=== PATIENT | male | born 1965 | race Caucasian/White ===

== ENCOUNTER → 2016-11-14 | Outpatient (CLI) | payer OTHER | END | disposition home or self-care (01) | LOC: LABWHC1 15:03 | PROVIDERS: ATTEND Orthopaedic Surgery Hand Surgery | DX: Z01.810 Encounter for preprocedural cardiovascular examination (principal); M72.0 Palmar fascial fibromatosis [Dupuytren] | CPT/HCPCS: 36415; 93005 ==

== ENCOUNTER → 2017-09-16 | Outpatient (CLI) | payer OTHER ==
[2017-09-16 11:48] LABS: CH 30.5; CHCM 35.4; HCT 47.4 % (39.0-53.0); HDW 2.98; HGB 16.1 gm/dL (13.0-17.5); MCH 29.3 pg (25.0-35.0); MCHC 33.9 g/dL (31.0-37.0); MCV 86.5 fL (80.0-100.0); Mean Platelet Volume 7.2; RBC 5.48 m/uL (4.30-5.90); RDW 13.4 % (11.5-15.5); WBC 7.4 k/uL (3.8-10.6)
[2017-09-16 12:04] LABS: Anion Gap 12 mmol/L; Blood Urea Nitrogen 11 mg/dL (9-20); Carbon Dioxide 26 mmol/L (22-30); Chloride 101 mmol/L (98-107); Non-African American GFR(MDRD) >60 (>60 ml/min/1.73 sqM); Sodium 139 mmol/L (137-145)
[2017-09-16 12:08] LABS: Potassium 5.4 mmol/L (3.5-5.1)
== END | disposition home or self-care (01) ==
LOC: LABPAT 10:16
PROVIDERS: ATTEND Internal Medicine Interventional Cardiology
DX: Z01.812 Encounter for preprocedural laboratory examination (principal); R07.9 Chest pain, unspecified
CPT/HCPCS: 36415; 80051; 82565; 84520; 85027

== ENCOUNTER 2017-09-23 10:51 | Day surgery (SDC) | payer OTHER ==
[2017-09-22 09:12] VITALS: BMI 27.9
[~2017-09-23 10:51] MED LIST: ALPRAZolam 0.25 MG TAB PO PRN; ALPRAZolam 0.5 MG TAB PO PRN; ASPIRIN 325 MG TAB PO ONE; NITROGLYCERIN SL TABS 0.4 MG TAB SUBLINGUAL PRN; SODIUM CHLORIDE 0.9% 1,000 ML in EMPTY BAG 1 BAG IV ONE
[2017-09-23 11:23] LABS: Glucose,Whole Blood 259 mg/dL (75-99)
[2017-09-23 11:37] VITALS: TEMP 98.4
[2017-09-23] MEDS ORDERED: HEPARIN SODIUM 1,000 UN/ML (10ML VL) ONE (13:22)
[2017-09-23] MEDS ORDERED: fentaNYL (PF) 50 MCG/ML 2 ML AMP ONE (13:22)
[2017-09-23] MEDS ORDERED: VERAPAMIL 2.5 MG/ML 2 ML AMP ONE (13:22)
[2017-09-23] MEDS ORDERED: LIDOCAINE 2% INJ 20 MG/ML (20 ML MDV) ONE (13:22)
[2017-09-23] MEDS ORDERED: fentaNYL (PF) 50 MCG/ML 2 ML AMP IV ONE (13:53)
[2017-09-23] MEDS ORDERED: LIDOCAINE 2% INJ 20 MG/ML SQ ONE (13:55)
[2017-09-23] MEDS ORDERED: VERAPAMIL SYRINGE (5 MG/10 ML) INTRAARTER ONE (13:56)
[2017-09-23] MEDS ORDERED: NITROGLYCERIN 1000MCG/10ML SYRINGE INTRAARTER ONE (14:05)
[2017-09-23] MEDS ORDERED: HEPARIN SODIUM 1,000 UN/ML (10ML VL) IV ONE (14:05)
[2017-09-23] MEDS ORDERED: IOHEXOL 350 MG/ML 125ML BOTTLE INJ ONE (14:12)
[2017-09-23] MEDS ORDERED: RX INFO: IV CONTRAST WAS GIVEN 1 EACH MISC MISCELLANE PRN (14:35)
[2017-09-23] MEDS ORDERED: TESTOSTERONE CYPIONATE 50 MG IM SCH (14:45)
[2017-09-23] MEDS ORDERED: SODIUM CHLORIDE 0.9% 1,000 ML IV SCH (14:45)
[2017-09-23 16:30] VITALS: RESP 16
[2017-09-23 17:54] VITALS: BP 101/64; PULSE 84
--- NOTE | 2017-09-23 19:27 | CC ---
CARDIAC CATHETERIZATION REPORT Mr. Olivarez is a 52-year-old male with known history of hypertension, hyperlipidemia, who has recently been complaining of episode of chest discomfort. In view of that, underwent a myocardial perfusion imaging that showed evidence of intra anteroapical wall reversible defect. In view of that, recommendation made regarding cardiac catheterization. The procedures, risks and complications were discussed with the patient who is in full understanding and agreement. PROCEDURE: Patient was brought to cardiac cath lab manager in a fasting semi-sedated state after receiving fentanyl and Benadryl and achieving moderate conscious sedated state. Using Xylocaine anesthesia and Seldinger technique, a 6-[place] sheath was introduced in the right radial artery. Selective right and left coronary angiography was performed using 5- [place] 3 and half bend right and left Billie catheter. Multiple views of the coronary artery including hemiaxial views obtained. Following that a 5-[place] tight pigtail catheter was introduced into the left ventricle and a 30 degree ROLLINS view of the left ventricle was obtained. Following that, catheter and sheaths were removed. Hemostasis was obtained with deployment of a TR band. There was no immediate complication. Patient is returned to his room in stable condition. Of note, the patient received 4500 units of intravenous heparin as well as intra-arterial verapamil. There was no immediate complication. FINDINGS: 1. Left main: This is a large-sized vessel bifurcating into the left circumflex, left anterior descending artery. The left main coronary artery is without any significant obstructive disease. 2. Left anterior descending artery: This is a large-sized vessel, tapers down in distal third, giving rise to 1 diagonal branch of moderate caliber. The left anterior descending artery as well as branches have no evidence of obstructive coronary artery disease. 3. Left circumflex this is a nondominant vessel, moderate in caliber, giving rise to a large obtuse marginal branch. The left circumflex has mild plaque of 10% at the ostium. The rest of the vessel has no high-grade stenosis. 4. Right coronary artery: This is a large dominant vessel bifurcating into PDA and posterolateral segment and branches. The right PDA reaches towards the inferoapical wall. The right coronary artery in the proximal segment has a 10-20% plaque. The rest of the vessel has no high-degree stenosis. Left ventriculogram: Left ventriculogram was performed in 30 degree ROLLINS view and revealed normal left ventricular size and systolic function. Ejection fraction 60%. There was no significant mitral regurgitation. HEMODYNAMICS: There was no gradient across the aortic valve. The left ventricle end- diastolic pressure was 6-10 mmHg. CONCLUSION: 1. 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 2. Normal left ventricular size and systolic function. RECOMMENDATION: In view of finding and anatomy, I have recommended continued medical therapy with aggressive coronary risk factors modifications that has been initiated. Those findings and recommendation were discussed with the patient and his family and they are in full understanding and agreement. Duration of the procedure 22 minutes. MMJOSY / MEGHAN: [id number] /
--- NOTE | 2017-09-23 19:33 | LTR ---
DATE OF SERVICE: 09/23/[address] Lopes: I had the pleasure of performing cardiac catheterization on Mr. Olivarez at [facility] on September 23. A full copy of the procedure note will be forwarded to you. He was found to have mild intimal disease involving the proximal left circumflex and right coronary artery with a normal left ventricular size and systolic function. Based on those findings, I recommend continue medical therapy with aggressive coronary risk modifications that you have initiated. Thank you again for allowing me to participate in his care. Please feel free to call for any questions. Sincerely yours, RAJIV / IJN: [id number] /
[2017-09-23] MEDS ORDERED: ATORVASTATIN 40 MG TAB PO SCH (21:00)
[2017-09-24] MEDS ORDERED: PIOGLITAZONE 30 MG TAB PO SCH (09:00)
[2017-09-24] MEDS ORDERED: ISOSORBIDE MONONITRATE ER 30 MG TAB.ER.24H PO SCH (09:00)
[2017-09-24] MEDS ORDERED: NON-FORMULARY DRUG (Aspirin [Adult Low Dose Aspirin Ec] 81 MG) PO SCH (09:00)
[2017-09-24] MEDS ORDERED: LINAGLIPTIN PO SCH (09:00)
[2017-09-24] MEDS ORDERED: NON-FORMULARY DRUG (Diclofenac Sodium 75 MG) PO SCH (09:00)
[2017-09-24] MEDS ORDERED: EMPAGLIFLOZIN PO SCH (09:00)
== END 2017-09-23 18:29 | disposition home or self-care (01) ==
LOC: CATHCVL 10:51
PROVIDERS: ATTEND Internal Medicine Interventional Cardiology
DX: I25.10 Atherosclerotic heart disease of native coronary artery without angina pectoris (principal); E11.9 Type 2 diabetes mellitus without complications; I10 Essential (primary) hypertension; E78.2 Mixed hyperlipidemia; E78.00 Pure hypercholesterolemia, unspecified; Z79.84 Long term (current) use of oral hypoglycemic drugs; Z79.82 Long term (current) use of aspirin; Z79.899 Other long term (current) drug therapy
CPT/HCPCS: 93458; 84132; C1894; C1769; J2001; J3010; J1644; Q9967

== ENCOUNTER → 2018-02-01 | Outpatient (CLI) | payer OTHER ==
--- NOTE | 2018-02-01 21:28 | MR ---
EXAMINATION TYPE: MR cervical spine wo con DATE OF EXAM: 02/01/2018 COMPARISON: NONE HISTORY: 52-year-old male with cervicalgia, Neck pain x3 months TECHNIQUE: Multiplanar, multisequence images of the cervical spine were acquired. Findings: No craniocervical junction abnormality, predental space widening, or prevertebral soft tissue swellin g. There is variable mild to moderate intervertebral disc desiccation throughout the cervical spine with disc osteophyte complex formation. Additional ligamentum flavum thickening and facet/uncovertebral j oint arthropathy at multiple levels as well as ligamentum flavum thickening. No suspicious bone marrow placement. At C2-C3, there is mild facet degenerative change without canal or foraminal stenosis. At C3-C4, mild broad-based disc osteophyte complex contiguous uncovertebral joint arthropathy. Additi onal bilateral facet arthropathy. Changes result in mild narrowing of the spinal canal with moderate right and mild left neural foraminal stenosis. At C4-C5, broad-based disc osteophyte complex contiguous with uncovertebral joint arthropathy. Additi onal ligamentum flavum thickening and facet degenerative change. Changes result in mild to moderate n arrowing of the spinal canal with abutment of both the dorsal and ventral cord with moderate right an d [id number] left neuroforaminal stenosis. At C5-C6, broad-based discussed by complex with uncovertebral joint and facet degenerative change. Ch anges result in moderate left greater than right neuroforaminal stenosis with mild overall spinal can al stenosis. At C6-C7, disc osteophyte complex with uncovertebral joint and facet degenerative change. No signific ant canal or foraminal stenosis. At C7/T1, there is ligamentum flavum thickening with minimal disc bulge and facet/uncovertebral joint degenerative change. Changes result in mild to moderate left and mild right neuroforaminal stenosis with mild overall spinal canal stenosis. No prevertebral or paravertebral soft tissue abnormality seen. Some heterogeneous signal of the cord secondary to artifacts. No discrete T2-weighted cord signal abn ormality. IMPRESSION: 1. Moderate multilevel degenerative disc disease. Additional levels of ligamentum flavum thickening a nd facet/uncovertebral joint arthropathy. 2. There is multilevel mild spinal canal stenoses, mild to moderate narrowing at C4-C5 where there is abutment of both the dorsal and ventral cord. No willis canal compromise or cord compression 3. Variable mild and moderate neural foraminal stenoses as outlined above.
== END | disposition home or self-care (01) ==
LOC: RADMRIMAIN 16:39
PROVIDERS: ATTEND Family Medicine
DX: M48.02 Spinal stenosis, cervical region (principal); M99.71 Connective tissue and disc stenosis of intervertebral foramina of cervical region; M50.30 Other cervical disc degeneration, unspecified cervical region; M46.82 Other specified inflammatory spondylopathies, cervical region
CPT/HCPCS: 72141

== ENCOUNTER → 2018-12-28 | Outpatient (CLI) | payer OTHER | LOC: CPPFTMAIN 13:19 | PROVIDERS: ATTEND Family Medicine | DX: R73.09 Other abnormal glucose (principal); Z88.8 Allergy status to other drugs, medicaments and biological substances | CPT/HCPCS: 94060; 94726; 94729 ==

== ENCOUNTER → 2019-03-01 | Outpatient (CLI) | payer OTHER ==
[2019-03-01 11:54] VITALS: BP 138/87; PULSE 108; RESP 16
--- NOTE | 2019-03-01 12:21 | P.PAINCN ---
History of Present Illness - Reason for Consult Consult date: 03/01/19 - History of Present Illness Mr. Olivarez is a 53-year-old gentleman who presents to the new patient consult for neck pain. He reports neck pain for a couple years time. Most recent event is after having a ski injury last year. He reports is not having any surgical intervention for his neck. He reports pain across his neck and into bilateral shoulders sometimes into his right arm. He reports a right-sided worse than l eft side. He reports his child conservative therapy including aspirin, physical therapy, massage therapy. He reports ease interventions appear to make his pain worse at times. He reports a VAS usually between 6 and 8 out of 10. Pain is about a 10 nothing really makes it better. He has trialed some narcotic medications that he had left over in the past. He reports that helped a little bit but he did not interested in taking those long-term. He also had a history of chronic back pain which was healed on its own and he reports it was a "sandra" healing. Past Medical History Past Medical History: Diabetes Mellitus, Hyperlipidemia Additional Past Medical History / Comment(s): "Dupertons" disease. Renal stones. Anxiety/panic disorder. History of Any Multi-Drug Resistant Organisms: None Reported Past Surgical History: Orthopedic Surgery Past Anesthesia/Blood Transfusion Reactions: No Reported Reaction Past Psychological History: Anxiety, Panic Disorder Additional Psychological History / Comment(s): Reports cardiac response including increased heart rate to "6 different medications." Smoking Status: Never smoker Past Alcohol Use History: None Reported Past Drug Use History: None Reported Medications and Allergies Home Medications Medication Instructions Recorded Confirmed Type Aspirin [Adult Low Dose Aspirin EC] 81 mg PO DAILY 09/22/17 03/01/19 History Atorvastatin [Lipitor] 40 mg PO HS 09/22/17 03/01/19 History Diclofenac Sodium [Voltaren] 75 mg PO DAILY 09/22/17 03/01/19 History Empagliflozin/Linagliptin 1 each PO DAILY 09/22/17 03/01/19 History [Glyxambi 25 mg-5 mg Tablet] Isosorbide Mononitrate ER [Imdur] 30 mg PO DAILY 09/22/17 03/01/19 History Pioglitazone [Actos] 30 mg PO DAILY 09/22/17 03/01/19 History metFORMIN HCL [Glucophage Xr] 500 mg PO DAILY 09/22/17 03/01/19 History Allergies Allergy/AdvReac Type Severity Reaction Status Date / Time Insulins AdvReac migraines Verified 03/01/19 11:41 Physical Exam Vitals: Vital Signs Pulse Resp BP Pulse Ox 03/01/19 11:42 108 H 16 138/87 99 Intake and Output 02/28/19 03/01/19 03/01/19 22:59 06:59 14:59 Other: Weight 88.451 kg PHYSICAL EXAM: Constitutional: Awake and alert no distress Cardiovascular exam: Regular rate, no lower extremity edema, palpable pulses bilaterally Respiratory exam: No audible wheezing, no accessory muscle usage Abdominal exam: Soft nontender Muscular skeletal exam: - Cervical spine: Minimal tenderness to palpation bilaterally. Range of motion is severely limited. Neck extension to 0, neck flexion to about 30, 0 of lateral sidebending. Is able to look to his left side to about 30 and about 20 to his right side. Spurling's is positive on the right. Facet loading is positive bilateral, Keith's is negative - Lumbar spine: Decreased lumbar lordosis. No changes in skin. Nontender palpation bilateral. Patient has full range of motion in flexion and extension as well as lateral sidebending. Straight leg raise is negative. Facet loading is negative. Neuro exam: Normal sensation bilateral upper and lower extremities. Deep tendon reflexes in the right upper extremity are 1+ and 2+ in the left upper extremity. Deep tendon reflexes in the lower extremities are 2+ bilateral Psychiatric exam: Cooperative, good insight Assessment and Plan Assessment: #1 cervical radiculopathy #2 cervical spondylosis without myelopathy Plan: After examination the patient, review of the medical records, and discussion with the patient I believe that this patient is multiple factorial reasons for his pain. I had a discussion with them regarding treatment plan which spanned from conservative therapy through surgical intervention. Patient would like to move forward with minimally invasive injections as he has trialed to conservative therapy without much relief. I discussed with him the risks b enefits and alternatives to the procedure. I discussed with him that injections may offer him some benefit but he should continue with his conservative therapy including physical therapy and massage therapy and daily relaxation techniques. Also given a prescription for Mobic 7.5 mg to take 1-2 times per day as needed. We will see the patient back for a cervical epidural steroid injection Time with Patient: Greater than 30 PQRS Measure Charge Sheet Measure #130: Documentation of Current Meds in Medical Chart: Patient's medicati ons documented in chart Measure #226: Tobacco Use: Screen & Cessation Intervention: Pt screened for tobacco use AND intervention given Measure #111: Pneumonia Vaccination: Pneumococcal vaccine administered or previously received Measure #47: Advance Care Plan: Advance care planning discussed & documented, plan or surrogate given Measure #412: Opioid Treatment Agreement: No documentation of signed opioid treatment agreement Measure #408: Opioid Therapy Follow-up Evaluation: Patient had f/u eval minimum every 3 months during opioid therapy Measure #317: Preventitive Care & Scrn High Bld Press & F/U: Normal blood pressure, f/u not required Measure #128: Body Mass Index (BMI) Screening & Follow-up: BMI documented within normal parameters Measure #131: Pain Assessment & Follow-up: Pain positive & plan documented Measure #431: Unhealthy Alcohol Use Preventative Care & Scrn: Patient not identified as an unhealthy alcohol user PQRS Narrative: Smoking Status Never smoker Do You Want the Pneumonia No Vaccine AT THIS TIME? Blood Pressure 138/87 Pain Intensity [Bilateral Neck 7 ] Scale Used Numeric (1 - 10) Hx Alcohol Use (MH) No Home Medications: Ambulatory Orders Aspirin [Adult Low Dose Aspirin EC] 81 mg PO DAILY 09/22/17 Atorvastatin [Lipitor] 40 mg PO HS 09/22/17 Diclofenac Sodium [Voltaren] 75 mg PO DAILY 09/22/17 Empagliflozin/Linagliptin [Glyxambi 25 mg-5 mg Tablet] 1 each PO DAILY 09/22/17 Isosorbide Mononitrate ER [Imdur] 30 mg PO DAILY 09/22/17 Pioglitazone [Actos] 30 mg PO DAILY 09/22/17 metFORMIN HCL [Glucophage Xr] 500 mg PO DAILY 09/22/17
== END | disposition home or self-care (01) ==
LOC: PNWHC3 11:37
PROVIDERS: ATTEND Hospitalist
DX: G89.29 Other chronic pain (principal); M47.22 Other spondylosis with radiculopathy, cervical region; E11.9 Type 2 diabetes mellitus without complications; E78.5 Hyperlipidemia, unspecified; F41.9 Anxiety disorder, unspecified; F41.0 Panic disorder [episodic paroxysmal anxiety]; Z98.890 Other specified postprocedural states; Z79.82 Long term (current) use of aspirin; Z79.891 Long term (current) use of opiate analgesic; Z79.84 Long term (current) use of oral hypoglycemic drugs; Z79.899 Other long term (current) drug therapy; Z88.8 Allergy status to other drugs, medicaments and biological substances
CPT/HCPCS: 99201

== ENCOUNTER 2019-03-14 06:55 | Day surgery (SDC) | payer OTHER ==
[2019-03-11 09:07] VITALS: BMI 27.6
[~2019-03-14 06:55] MED LIST changes: -ALPRAZolam 0.25 MG TAB PO PRN; -ALPRAZolam 0.5 MG TAB PO PRN; -ASPIRIN 325 MG TAB PO ONE; +LACTATED RINGERS 1,000 ML IV SCH; -NITROGLYCERIN SL TABS 0.4 MG TAB SUBLINGUAL PRN; -SODIUM CHLORIDE 0.9% 1,000 ML in EMPTY BAG 1 BAG IV ONE
[2019-03-14 07:18] VITALS: RESP 16; TEMP 97.6
[2019-03-14 07:26] LABS: Glucose,Whole Blood 314 mg/dL (75-99)
--- NOTE | 2019-03-14 08:14 | P.PCN ---
Date of Procedure: 03/14/19 Procedure(s) Performed: . PROCEDURE 1. Cervical epidural steroid injection under fluoroscopic guidance, C7-T1 2. Cervical epidurogram. PREOPERATIVE DIAGNOSIS: 1- Cervical radiculopathy., 2-cervical spondylosis with cervical Facet arthropathy without myelopathy POSTOPERATIVE DIAGNOSIS: : 1- Cervical radiculopathy. 2-cervical spondylosis with cervical Facet arthropathy without myelopathy ANESTHESIA: Local anesthesia with lidocaine 1 % , and moderate sedation, with Versed 2 mg and Fentanyl 50 mcg. EBL 0 PROCEDURE INDICATION: The patient with neck pain and radiculitis unresponsive to conservative treatment consents for procedure. PROCEDURE DESCRIPTION / TECHNIQUE: The patient was seen and identified in the preoperative area. Risks, benefits, complications, including but not limited to infections ,bleeding , allergic reactions to the medications ,and not complete pain releife, and alternatives were discussed with the patient, the patient agreed to proceed with the procedure and signed the consent. Patient was taken to the OR and time out was completed. The patient was placed in the prone position on the procedure table. A pillow was placed under the patients chest to increase the cervical interlaminar space. The cervical area was prepped and draped in the usual sterile fashion. Vital signs were closely monitored during the procedure. Conscious sedation was used during the procedure to decrease patients anxiety. Using anterior-posterior fluoroscopy, the C7-T1 interlaminar space was identified and the skin over this site was marked and then infiltrated with 1% lidocaine subcutaneously. Subsequently, a 20-gauge 3-1/2-inch Tuohy epidural needle was inserted and advanced toward the epidural space by means of the ``hanging-drop technique and guided by AP and lateral fluoroscopy. The correct needle position in the epidural space was verified with the injection of 2 mL of the water soluble contrast dye Isovue-200 and observing an excellent epidurogram with the epidural spread of the dye, after negative aspiration for blood and CSF and in the absence of paresthesias. Again after negative aspiration, mixture containing 10 mg Dexamethasone and 2 ml of preservative- free normal saline injected and a washout of epidurogram was seen. Needle was withdrawn intact, skin was cleansed, and bandages were applied. Complications= none. Disposition= patient was placed in supine position and transferred to the recovery room area in stable condition and there was no evidence of upper or lower extremity motor or sensory deficit after the procedure patient was discharged from recovery room after discharge criteria met and home discharge instructions was given by the staff and patient will follow with the pain clinic in 2-4 weeks Note= patient is blood sugar is 314 at 7:30 AM today, patient had history of diabetes and he reported that his blood sugar all the time between 300-400, I explained to the patient that the steroid it will increase his blood sugars, and he has to monitor this blood sugars more often and if his blood sugar higher than average ,then he has to contact his primary care.
[2019-03-14 08:35] VITALS: BP 131/86; PULSE 87
[2019-03-14] MEDS ORDERED: IV FLUID CONTINUATION 1,000 ML IV ONE (08:40)
--- NOTE | 2019-03-14 08:46 | FL ---
EXAMINATION TYPE: FL guided pain mgmt statistic DATE OF EXAM: 03/14/2019 HISTORY: Flouroscopy time 4 seconds of fluoroscopy provided. IMPRESSION: 1. Fluoroscopy time.
== END 2019-03-14 08:50 | disposition home or self-care (01) ==
LOC: ORPAIN 06:55
PROVIDERS: ATTEND Specialist
DX: M47.22 Other spondylosis with radiculopathy, cervical region (principal); E11.9 Type 2 diabetes mellitus without complications; Z79.4 Long term (current) use of insulin; F41.9 Anxiety disorder, unspecified; F41.0 Panic disorder [episodic paroxysmal anxiety]
CPT/HCPCS: 62321; J2250; J1100; J3010; Q9966

== ENCOUNTER → 2019-03-24 | Outpatient (CLI) | payer OTHER ==
[2019-03-24 12:35] VITALS: BP 136/72; PULSE 89; RESP 16
--- NOTE | 2019-03-24 13:12 | P.PN ---
Subjective Progress Note Date: 03/24/19 This is a follow-up visit for this 53 years old male with a chronic history of severe neck pain with radiation to the upper extremities, diagnosed with cervical radiculopathy and cervical spondylosis, on 03/14/2019 patient had cervical epidural steroid injection at C7-T1, and he reported that postop he sta rted feeling numbness and tingling sensation in the left upper extremity at the medial aspect of his left upper extremity without getting down to the left hand especially the fourth and fifth digit, he denies any motor or sensory deficits, patient reported that he used to get numbness and tingling in his upper extremity bilaterally, but the numbness used to be intermittent, since the injection he reported that his numbness in his left upper extremity become constant, he denies any fever or night sweats, he denies any change in the bowel movement or urination, and no motor deficit, he continues to use Flexeril 10 mg 3 times a day and Mobic 7.5 mg twice a day and Gobles 5/325 every 6 hours when necessary,he is getting prescription refills from his primary care Objective - Vital Signs Vital signs: Vital Signs Temp Pulse 89 03/24/19 12:19 Resp 16 03/24/19 12:19 BP 136/72 03/24/19 12:19 Pulse Ox 96 03/24/19 12:19 Intake & Output 03/23/19 03/24/19 03/24/19 18:59 06:59 18:59 Weight 88.451 kg - Exam Physical Examinations : -Constitutiona : Cooperative , not in acute distress . -HEENT : nech ; supple , no Lymphadenopathy , normal thyroid size . eyes : no ptosis , no icterus, no photophobia . ENT : normal of hearing , normal oropharynx , no Thrush . - Respiratory : Chest clear to auscultations Bilaterally , no wheezing , no Rhonchi . - Cardiovascula : regular rate and rhythem , S1 , S2 , no S3 , no S4. - Gastrointestina : abdomen soft no tenderness , bowel sounds , no organomegally . - Genitourinary : Defferred . - neurologic : Cranial nerve II to XII intact , no focal neurological deffecit . -psychatric : alert , oriented X 3 , appropriate affect , intact judgment and insight . -Lymphatic : no Lymphadenopathy . - musculoskeltal : Cervical Spine motor stregnth in the deltoid and biceps, 4/5 right side , 4/5Left side (equal motor strength both upper extremities ) motor stregnth biceps and the wrist extensors 4/5 right side ,4/5 left side . motor stregnth in the triceps muscle . 4/5 Right side , 4/5 Left side positive cervical facet loading test . Spurling test positive bilaterally. Neck distraction test positive bilaterally. Zeenat sign positive bilaterally. Lumber spine moter stegnth lower extremities ,thigh and legs 5/5 Right side , 5/5 Left side Assessment and Plan Plan: Assessment and plan= cervical radiculopathy , cervical spinal stenosis, cervical spondylosis with cervical facet arthropathy Patient reported that his numbness and tingling sensation increases in his left upper extremity after cervical epidural steroid injection at C7-T1, discussed with the patient the option of starting him on Lyrica/gabapentin, and explained to him that these medication could help with his neuropathic pain but he refused, and he preferred not to take any new medication and is concerned about the side effects of the medication, patient will be referred for neurologist to have EMG /nerve conduction study, and also patient will be referred to have a new MRI of the cervical spine without contrast, the patient wished to proceed with a second cervical epidural steroid injection at C7-T1, procedure risk and benefits and alternatives discussed with patient and he want to proceed Time with Patient: Less than 30
== END | disposition home or self-care (01) ==
LOC: PNWHC3 12:00
PROVIDERS: ATTEND Specialist
DX: G89.29 Other chronic pain (principal); M48.02 Spinal stenosis, cervical region; M47.22 Other spondylosis with radiculopathy, cervical region; M46.92 Unspecified inflammatory spondylopathy, cervical region; Z79.1 Long term (current) use of non-steroidal anti-inflammatories (NSAID); Z79.891 Long term (current) use of opiate analgesic
CPT/HCPCS: 99211

== ENCOUNTER 2019-03-28 08:27 | Day surgery (SDC) | payer OTHER ==
[2019-03-25 09:13] VITALS: BMI 27.9
[2019-03-28 08:44] LABS: Glucose,Whole Blood 521 mg/dL (75-99)
== END 2019-03-28 08:44 | disposition home or self-care (01) ==
LOC: ORPAIN 08:27
PROVIDERS: ATTEND Hospitalist
DX: Z53.8 Procedure and treatment not carried out for other reasons (principal)

== ENCOUNTER → 2019-04-11 | Outpatient (CLI) | payer OTHER ==
--- NOTE | 2019-04-11 10:14 | MR ---
EXAMINATION TYPE: MR cervical spine wo con DATE OF EXAM: 04/11/2019 COMPARISON: Prior MR cervical spine 02/01/2018 HISTORY: Radiculopathy, cervical region TECHNIQUE: Multiplanar, multisequence images of the cervical spine were acquired. C2-C3: No evidence for degenerative disc disease. No disc bulge/herniation or protrusion. No Canal stenosis. Foramina are patent bilaterally. C3-C4: Bilateral foraminal encroachment is present right greater than left similar to prior exam, the re is minimal posterior disc bulge causing only slight anterior mass effect on the thecal sac, mild c entral stenosis C4-C5: Broad-based posterior disc bulge is present causing anterior mass effect on the thecal sac, mo derate central stenosis, there is again noted bilateral foraminal encroachment, small central posteri or disc herniation contacting the anterior cervical cord. C5-C6: Bilateral foraminal encroachment is again noted. Broad-based posterior disc bulge causes sligh t anterior mass effect on the thecal sac, mild central stenosis C6-C7: No significant central stenosis. No significant foraminal encroachment, minimal posterior broa d-based disc bulge contacts anterior thecal sac. C7-T1: Minimal posterior disc bulge causes slight anterior mass effect on the thecal sac. There is on ly mild central stenosis. Mild foraminal encroachment is again noted Cervical segments are intact. There is normal alignment. Cervical spinal cord is of normal signal. Craniovertebral junction relationships are within normal limits. Cervical vertebral bodies show sta ble height, alignment, and bone marrow signal. Loss of disc height and signal at intervertebral level s is again noted and unchanged. There is mild multilevel spondylosis, endplate discogenic marrow sign al change especially at C5-6. IMPRESSION: Mild degenerative disc disease, multilevel foraminal encroachment is similar to prior exam.
== END | disposition home or self-care (01) ==
LOC: RADMRIMAIN 08:26
PROVIDERS: ATTEND Specialist
DX: M50.10 Cervical disc disorder with radiculopathy, unspecified cervical region (principal)
CPT/HCPCS: 72141

== ENCOUNTER 2019-04-17 13:26 | Emergency (ER) | payer OTHER ==
[2019-04-17 13:43] VITALS: BP 126/87; PULSE 101; RESP 18; TEMP 98.5
--- NOTE | 2019-04-17 14:14 | ED ---
Upper Extremity HPI - General Chief Complaint: Extremity Injury, Upper Stated Complaint: rt elbow pain Time Seen by Provider: 04/17/19 13:47 Source: patient, RN notes reviewed Mode of arrival: ambulatory Limitations: no limitations - History of Present Illness Initial Comments: 53-year-old male presents emergency Department chief complaint right elbow pain. Patient states that he was carrying his golf bag and states that he went to extend his arm forward and felt instant pain. Patient states it was sore prior to this from helping his son move some objects. Patient is [id number] he does admit that when he used to work used to do repetitive motions were has not worked in several years. Patient denies any paresthesias. Patient's pain is better at rest worse with movement. Patient denies discoloration or redness. - Related Data Home Medications Medication Instructions Recorded Confirmed Aspirin [Adult Low Dose Aspirin EC] 81 mg PO DAILY 09/22/17 03/25/19 Diclofenac Sodium [Voltaren] 75 mg PO DAILY 09/22/17 03/25/19 Empagliflozin/Linagliptin 1 each PO DAILY 09/22/17 03/25/19 [Glyxambi 25 mg-5 mg Tablet] Pioglitazone [Actos] 30 mg PO DAILY 09/22/17 03/25/19 metFORMIN HCL [Glucophage Xr] 500 mg PO QAM 09/22/17 03/25/19 Cholecalciferol [Vitamin D3 (25 1,000 unit PO DAILY 03/11/19 03/25/19 Mcg = 1000 Iu)] Lutein 20 mg PO DAILY 03/11/19 03/25/19 Multivitamin/Iron/Folic Acid 1 each PO DAILY 03/11/19 03/25/19 [Centrum Adults Tablet] glipiZIDE [Glucotrol] 5 mg PO DAILY 03/11/19 03/25/19 Cyclobenzaprine [Flexeril] 10 mg PO TID 03/14/19 03/25/19 HYDROcodone/APAP 5-325MG [[place] 1 tab PO Q6HR PRN 03/14/19 03/25/19 5-325] Meloxicam [Mobic] 7.5 mg PO BID PRN 03/14/19 03/25/19 Allergies Allergy/AdvReac Type Severity Reaction Status Date / Time Insulins AdvReac migraines Verified 04/17/19 13:43 Review of Systems ROS Statement: Those systems with pertinent positive or pertinent negative responses have been documented in the HPI. ROS Other: All systems not noted in ROS Statement are negative. 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 Renal stones. Anxiety/panic disorder. "Chest pain from anxiety." Memory impairment from hitting head after skiing accident last year. Macular degeneration and retinopathy bilaterally. Borderline high cholestrol. History of Any Multi-Drug Resistant Organisms: None Reported Past Surgical History: Orthopedic Surgery Additional Past Surgical History / Comment(s): Bilateral hand surgery, left foot surgery. Past Anesthesia/Blood Transfusion Reactions: No Reported Reaction Past Psychological History: Anxiety, Panic Disorder Smoking Status: Never smoker - Past Family History Mother Family Medical History: No Reported History General Exam Limitations: no limitations General appearance: alert, in no apparent distress Head exam: Present: atraumatic, normocephalic, normal inspection Eye exam: Present: normal appearance, PERRL, EOMI. Absent: scleral icterus, conjunctival injection, periorbital swelling Neck exam: Present: normal inspection, full ROM. Absent: tenderness, meningismus, lymphadenopathy Respiratory exam: Present: normal lung sounds bilaterally. Absent: respiratory distress, wheezes, rales, rhonchi, stridor Cardiovascular Exam: Present: regular rate, normal rhythm, normal heart sounds. Absent: systolic murmur, diastolic murmur, rubs, gallop, clicks Extremities exam: Present: other (Right elbow there is tenderness at the lateral epicondyle region and over the muscle body, pain with wrist extension, pronation and supination. Patient does have full range of motion no notable swelling no erythema, radial pulses are equal bilaterally) Neurological exam: Present: reflexes normal. Absent: motor sensory deficit Skin exam: Present: warm, dry, intact, normal color. Absent: rash Course Vital Signs 04/17/19 13:40 Temperature 98.5 F Pulse Rate 101 H Respiratory 18 Rate Blood Pressure 126/87 O2 Sat by Pulse 98 Oximetry Medical Decision Making - Medical Decision Making 53-year-old male presented for right elbow pain. Patient symptoms more consistent with lateral epicondylitis, strain. Patient we discharged on anti- inflammatories, pain medication advised to wear tennis elbow brace and will follow-up with orthopedics as needed. Disposition Clinical Impression: Lateral epicondylitis, Elbow strain Disposition: HOME SELF-CARE Condition: Stable Instructions (If sedation given, give patient instructions): Elbow Sprain (ED) Additional Instructions: Please return to the Emergency Department if symptoms worsen or any other concerns. Is patient prescribed a controlled substance at d/c from ED?: No Referrals: Oracio Lopes MD [Primary Care Provider] - 1-2 days Heath Womack DO [Medical Doctor] - 1-2 days Time of Disposition: 14:39
--- NOTE | 2019-04-17 14:27 | XR ---
EXAMINATION TYPE: XR elbow complete RT DATE OF EXAM: 04/17/2019 COMPARISON: NONE HISTORY: Pain TECHNIQUE: 3 views FINDINGS: I see no fracture nor dislocation. There are some spurring on the olecranon process of ulna . There is no sign of joint effusion. IMPRESSION: Spurring on the olecranon process. No fracture.
== END 2019-04-17 15:01 | disposition home or self-care (01) ==
LOC: EC 13:26
DX: M77.11 Lateral epicondylitis, right elbow (principal); S53.401A Unspecified sprain of right elbow, initial encounter; E11.319 Type 2 diabetes mellitus with unspecified diabetic retinopathy without macular edema; Z79.82 Long term (current) use of aspirin; Z79.84 Long term (current) use of oral hypoglycemic drugs; Z79.1 Long term (current) use of non-steroidal anti-inflammatories (NSAID); Z79.899 Other long term (current) drug therapy; Z88.8 Allergy status to other drugs, medicaments and biological substances; X58.XXXA Exposure to other specified factors, initial encounter
CPT/HCPCS: 99283

== ENCOUNTER → 2019-09-08 | Outpatient (CLI) | payer OTHER ==
[2019-09-08 13:19] VITALS: BP 118/81; PULSE 87; RESP 16
--- NOTE | 2019-09-13 14:46 | P.PAINPG ---
Subjective Progress Note Date: 09/08/19 This is a follow-up visit for this 54 year old male with a chronic history of severe neck pain with radiation to the upper extremities, diagnosed with cervical radiculopathy and cervical spondylosis, on 03/14/2019 patient had cervical epidural steroid injection at C7-T1, and he reports some benefit from t his injection, which was short-lived. He was scheduled to undergo a repeat cervical epidural steroid injection, however it was canceled due to blood sugars being above 500. On review of records, it appears that for the epidural done on 03/14/2019, his blood sugar was greater than 300. We did discuss that his short acting benefit from this procedure could be due to elevated blood sugar and ineffectiveness of steroid in the setting of elevated blood sugar. He reports that since then, his HbA1c has reduced from 10.3 to 6.7. He continues to check his blood sugar at home on a daily basis and reports that it is well [id number] this morning. Currently, his pain is located in the base of his neck, radiating to bilateral arms, right greater than leftlateral forearms, pinky and ring finger. He does report numbness and tingling in bilateral upper extremities, left greater than right. He denies subjective weakness. he denies any fever or night sweats, he denies any change in the bowel movement or urination, and no motor deficit, he continues to use Flexeril 10 mg 3 times a day and Mobic 7.5 mg daily and [place] 5/325 every 6 hours when necessary,he is getting prescription refills from his primary care. He did undergo an EMG which shows diffuse sensory neuropathy. Review of systems is negative for chest pain, shortness of breath, new onset weakness, numbness/tingling, abdominal pain, malaise, fever, night sweats, chills, homicidal or suicidal ideation, or bowel or bladder incontinence. Objective Physical exam: Vitals: Reviewed in EMR GENERAL: Well appearing, in no acute distress PSYCH: Mood and affect is appropriate. Awake, alert, and oriented SKIN: Skin color, texture, turgor normal, no rashes or lesions HEENT: Normocephalic, atraumatic. EOM intact CV: No pedal edema RESP: Respirations are unlabored, no audible wheezing GI: Abdomen non-distended MUSCULOSKELETAL: Bilateral upper extremity strength is normal and symmetric. No atrophy or tone abnormalities are noted. Neck: Tenderness to palpation over the cervical paraspinous muscles. Spurling positive bilaterally, Keith's sign negative. No obvious deformity or signs of trauma. Normal cervical lordotic curve Extremities: Peripheral joint ROM is full and pain free without obvious instability or laxity in all four extremities. No edema or skin discolorations noted. Gait: Gait is normal NEUR: Bilateral upper extremity coordination and muscle stretch reflexes are physiologic and symmetric. Reduced sensation to light touch in bilateral upper extremities.. Labs: EMG shows diffuse sensory neuropathy bilaterally. Assessment and Plan Plan: Assessment and plan= cervical radiculopathy , cervical spinal stenosis, cervical spondylosis with cervical facet arthropathy EMG reviewed which shows diffuse sensory neuropathy in bilateral upper extremities. At last visit, we had discussed starting gabapentin or Lyrica, which the patient refused due to concern about side effects. Of note, patient's blood sugar was greater than 500 for the last scheduled cervical epidural steroid injection, and was hence canceled. Patient now reports that his blood sugar is better controlled, and would like to schedule his second cervical epidural steroid injection at C7-T1, I explained to him that his blood sugar will have to be less than 200 on the day of procedure stop we discussed that the epidural will likely help with his pain, but is unlikely to help with his numbness and tingling which is likely due to diffuse sensory neuropathy. He expressed understanding. Prescription written for Mobic 7.5 daily Time with Patient: Less than 30 Objective - Vital Signs Vital signs: Vital Signs Temp Pulse 87 09/08/19 13:16 Resp 16 09/08/19 13:16 BP 118/81 09/08/19 13:16 Pulse Ox 98 09/08/19 13:16 PQRS Measure Charge Sheet Measure #130: Documentation of Current Meds in Medical Chart: Patient's medications documented in chart Measure #226: Tobacco Use: Screen & Cessation Intervention: Pt not a tobacco user Measure #111: Pneumonia Vaccination: Pneumococcal vaccine NOT administered or previously given Measure #47: Advance Care Plan: Advance care planning discussed & documented, pt chose/unable to give Measure #412: Opioid Treatment Agreement: No documentation of signed opioid treatment agreement Measure #317: Preventitive Care & Scrn High Bld Press & F/U: Normal blood pressure, f/u not required Measure #128: Body Mass Index (BMI) Screening & Follow-up: BMI documented within normal parameters Measure #131: Pain Assessment & Follow-up: Pain positive & plan documented, Follow-up scheduled Measure #431: Unhealthy Alcohol Use Preventative Care & Scrn: Patient not identified as an unhealthy alcohol user PQRS Narrative: Smoking Status Never smoker Blood Pressure 118/81 Pain Intensity [Head] 8 Scale Used Numeric (1 - 10) Hx Alcohol Use (MH) No Home Medications: Ambulatory Orders Aspirin [Adult Low Dose Aspirin EC] 81 mg PO DAILY 09/22/17 Diclofenac Sodium [Voltaren] 75 mg PO DAILY 09/22/17 Empagliflozin/Linagliptin [Glyxambi 25 mg-5 mg Tablet] 1 each PO DAILY 09/22/17 Pioglitazone [Actos] 30 mg PO DAILY 09/22/17 metFORMIN HCL [Glucophage Xr] 500 mg PO QAM 09/22/17 Cholecalciferol [Vitamin D3 (25 Mcg = 1000 Iu)] 1,000 unit PO DAILY 03/11/19 Lutein 20 mg PO DAILY 03/11/19 Multivitamin/Iron/Folic Acid [Centrum Adults Tablet] 1 each PO DAILY 03/11/19 Cyclobenzaprine [Flexeril] 10 mg PO TID PRN 03/14/19 HYDROcodone/APAP 5-325MG [[place] 5-325] 1 tab PO Q6HR PRN 03/14/19 Meloxicam [Mobic] 7.5 mg PO BID PRN 03/14/19 Ibuprofen [Motrin] 600 mg PO Q8HR PRN #20 tab 04/17/19 metFORMIN HCL ER [Glucophage Xr] 500 mg PO DAILY 09/06/19 Controlled Substance Measures - Controlled Substance Measures Is patient prescribed a controlled substance at discharge?: No
== END ==
LOC: PNWHC3 12:57
PROVIDERS: ATTEND Anesthesiology
DX: G89.29 Other chronic pain (principal); M48.02 Spinal stenosis, cervical region; M47.22 Other spondylosis with radiculopathy, cervical region; M46.92 Unspecified inflammatory spondylopathy, cervical region; G62.9 Polyneuropathy, unspecified; Z79.82 Long term (current) use of aspirin; Z79.899 Other long term (current) drug therapy; Z79.84 Long term (current) use of oral hypoglycemic drugs; Z79.891 Long term (current) use of opiate analgesic; Z79.1 Long term (current) use of non-steroidal anti-inflammatories (NSAID)
CPT/HCPCS: 99211

== ENCOUNTER 2019-09-20 08:08 | Day surgery (SDC) | payer OTHER ==
[2019-09-16 13:04] VITALS: BMI 27.9
[2019-09-20] MEDS ORDERED: LIDOCAINE 1% 20 ML VIAL (10MG/ML) FOR IV START INTRADERMA ONE (09:05)
[2019-09-20 09:10] VITALS: RESP 16; TEMP 97.7
[2019-09-20 09:15] LABS: Glucose,Whole Blood 130 mg/dL (75-99)
--- NOTE | 2019-09-20 09:23 | P.PCN ---
Date of Procedure: 09/20/19 Procedure(s) Performed: PROCEDURE 1. Cervical epidural steroid injection under fluoroscopic guidance, C7-T1 2. Cervical epidurogram. PREOPERATIVE DIAGNOSIS: 1- Cervical radiculopathy., 2-cervical spondylosis with cervical Facet arthropathy without myelopathy POSTOPERATIVE DIAGNOSIS: : 1- Cervical radiculopathy. 2-cervical spondylosis with cervical Facet arthropathy without myelopathy ANESTHESIA: Local anesthesia with lidocaine 1 % , and moderate sedation, with Versed 2 mg and Fentanyl 50 mcg. EBL 0 PROCEDURE INDICATION: The patient with neck pain and radiculitis unresponsive to conservative treatment consents for procedure. PROCEDURE DESCRIPTION / TECHNIQUE: The patient was seen and identified in the preoperative area. Risks, benefits, complications, including but not limited to infections ,bleeding , allergic reactions to the medications ,and not complete pain releife, and alternatives were discussed with the patient, the patient agreed to proceed with the procedure and signed the consent. Patient was taken to the OR and time out was completed. The patient was placed in the prone position on the procedure table. A pillow was placed under the patients chest to increase the cervical interlaminar space. The cervical area was prepped and draped in the usual sterile fashion. Vital signs were closely monitored during the procedure. Conscious sedation was used during the procedure to decrease patients anxiety. Using anterior-posterior fluoroscopy, the C7-T1 interlaminar space was identified and the skin over this site was marked and then infiltrated with 1% lidocaine subcutaneously. Subsequently, a 20-gauge 3-1/2-inch Tuohy epidural needle was inserted and advanced toward the epidural space by means of the ``hanging-drop technique and guided by AP and lateral fluoroscopy. The correct needle position in the epidural space was verified with the injection of 2 mL of the water soluble contrast dye [id number]-200 and observing an excellent epidurogram with the epidural spread of the dye, after negative aspiration for blood and CSF and in the absence of paresthesias. Again after negative aspiration, mixture containing 10 mg Dexamethasone and 2 ml of preservative- free normal saline injected and a washout of epidurogram was seen. Needle was withdrawn intact, skin was cleansed, and bandages were applied. Complications= none. Disposition= patient was placed in supine position and transferred to the recovery room area in stable condition and there was no evidence of upper or lower extremity motor or sensory deficit after the procedure patient was discharged from recovery room after discharge criteria met and home discharge instructions was given by the staff and patient will follow with the pain clinic in 2-4 weeks
[2019-09-20] MEDS ORDERED: LACTATED RINGERS 1,000 ML IV ONE (09:30)
[2019-09-20 09:39] LABS: Glucose,Whole Blood 133 mg/dL (75-99)
[2019-09-20 09:40] VITALS: BP 121/71; PULSE 73
--- NOTE | 2019-09-20 09:42 | FL ---
EXAMINATION TYPE: FL guided pain mgmt statistic DATE OF EXAM: 09/20/2019 HISTORY: Pain sec fl time. 1 image saved. Cervical injection.
== END 2019-09-20 09:52 | disposition home or self-care (01) ==
LOC: ORPAIN 08:08
PROVIDERS: ATTEND Specialist
DX: M47.22 Other spondylosis with radiculopathy, cervical region (principal); E11.9 Type 2 diabetes mellitus without complications; Z88.8 Allergy status to other drugs, medicaments and biological substances
CPT/HCPCS: 62321; J2250; J1100; J3010; Q9966

== ENCOUNTER → 2019-10-12 | Outpatient (CLI) | payer OTHER ==
[2019-10-12 14:22] VITALS: BP 100/70; PULSE 81; RESP 20
--- NOTE | 2019-10-12 15:13 | P.PAINPG ---
Subjective Progress Note Date: 10/12/19 this is a follow-up visit for this 54 years old male with a history of severe neck pain with radiation to the upper extremity, and diagnosed with cervical radiculopathy and cervical spondylosis with cervical facet arthropathy, we have done cervical epidural steroid injection in August 2019 and he reported that he get significant improvement of his neck pain , recently he had surgical intervention on his right hand secondary to Dupuytren contraction, and he has the cast applied to his right arm, he denies any fever or night sweats Objective - Vital Signs Vital signs: Vital Signs Temp Pulse 81 10/12/19 14:17 Resp 20 10/12/19 14:17 BP 100/70 10/12/19 14:17 Pulse Ox 100 10/12/19 14:17 - Exam Physical Examinations : -Constitutiona : Cooperative , not in acute distress . -HEENT : nech : supple , no Lymphadenopathy , normal thyroid size . : eyes : no ptosis , no icterus, no photophobia . - neurologic : Cranial nerve II to XII intact , no focal neurological deffecit . -psychatric : alert , oriented X 3 , appropriate affect , intact judgment and insight . -Lymphatic : no Lymphadenopathy . - musculoskeltal : Cervical Spine cervical facet loading test: Positive Bilaterally Spurling test positive bilaterally. Neck distraction test positive bilat erally. Zeenat sign positive bilaterally. Lumber spine moter stegnth lower extremities ,thigh and legs 5/5 Right side , 5/5 Left side Assessment and Plan Plan: assessment and plan= chronic neck pain with radiation to the upper extremity Cervical radiculopathy. Cervical spondylosis with cervical facet arthropathy. Patient had good pain relief after cervical epidural steroid injection and he will be good candidate to have repeat cervical epidural steroid injection at C7-T1 at the earliest convenient for the patient. patient currently using [place] 5/325 every 6 hours when necessary, and he is getting prescriptions from his PCP, denies any side effects of the medication Time with Patient: Less than 30 PQRS Measure Charge Sheet Measure #130: Documentation of Current Meds in Medical Chart: Patient's medications documented in chart Measure #226: Tobacco Use: Screen & Cessation Intervention: Pt not a tobacco user Measure #111: Pneumonia Vaccination: Pneumococcal vaccine NOT administered or previously given Measure #47: Advance Care Plan: Advance care planning discussed & documented, pt chose/unable to give Measure #412: Opioid Treatment Agreement: No documentation of signed opioid treatment agreement Measure #408: Opioid Therapy Follow-up Evaluation: Patient had NO f/u eval minimum every 3 months during opioid therapy Measure #317: Preventitive Care & Scrn High Bld Press & F/U: Normal blood pressure, f/u not required Measure #128: Body Mass Index (BMI) Screening & Follow-up: BMI documented ABOVE normal parameters - f/u documented Measure #131: Pain Assessment & Follow-up: Pain positive & plan documented, Follow-up scheduled Measure #431: Unhealthy Alcohol Use Preventative Care & Scrn: Patient not identified as an unhealthy alcohol user PQRS Narrative: Smoking Status Never smoker Blood Pressure 100/70 Pain Intensity [Lower Neck] 7 Scale Used Numeric (1 - 10) Hx Alcohol Use (MH) No Home Medications: Ambulatory Orders Aspirin [Adult Low Dose Aspirin EC] 81 mg PO DAILY 09/22/17 Empagliflozin/Linagliptin [Glyxambi 25 mg-5 mg Tablet] 1 each PO DAILY 09/22/17 Pioglitazone [Actos] 30 mg PO DAILY 09/22/17 Cholecalciferol [Vitamin D3 (25 Mcg = 1000 Iu)] 1,000 unit PO DAILY 03/11/19 Lutein 20 mg PO DAILY 03/11/19 Multivitamin/Iron/Folic Acid [Centrum Adults Tablet] 1 each PO DAILY 03/11/19 Cyclobenzaprine [Flexeril] 10 mg PO TID PRN 03/14/19 HYDROcodone/APAP 5-325MG [[place] 5-325] 1 tab PO Q6HR PRN 03/14/19 Meloxicam [Mobic] 7.5 mg PO BID PRN 03/14/19 Ibuprofen [Motrin] 600 mg PO Q8HR PRN #20 tab 04/17/19 metFORMIN HCL ER [Glucophage Xr] 500 mg PO DAILY 09/06/19 metFORMIN HCL [metFORMIN HCL ER] 500 mg PO DAILY 10/10/19 Controlled Substance Measures - Controlled Substance Measures Is patient prescribed a controlled substance at discharge?: No
== END | disposition home or self-care (01) ==
LOC: PNWHC3 14:03
PROVIDERS: ATTEND Specialist
DX: G89.29 Other chronic pain (principal); M47.22 Other spondylosis with radiculopathy, cervical region; M46.92 Unspecified inflammatory spondylopathy, cervical region; Z77.123 Contact with and (suspected) exposure to radon and other naturally occurring radiation; Z79.82 Long term (current) use of aspirin; Z79.84 Long term (current) use of oral hypoglycemic drugs; Z79.1 Long term (current) use of non-steroidal anti-inflammatories (NSAID); Z79.891 Long term (current) use of opiate analgesic; Z79.899 Other long term (current) drug therapy
CPT/HCPCS: 99211

== ENCOUNTER 2019-10-15 19:55 | Emergency (ER) | payer OTHER ==
[2019-10-15 20:10] VITALS: TEMP 99.2
--- NOTE | 2019-10-15 20:29 | ED ---
Psych HPI - General Source: patient, RN notes reviewed, old records reviewed Mode of arrival: ambulatory - History of Present Illness MD Complaint: feels depressed (this is all now resolved) -: week(s) Associated Psychiatric Symptoms: depression History of same: Yes Quality: intermittent, resolved prior to arrival Improves With: none Associated Symptoms: denies other symptoms Treatments Prior to Arrival: placed on mental health hold <Alonzo Barfield - Last Filed: 10/15/19 20:37> <Xavi Soto - Last Filed: 10/15/19 22:33> - General Chief Complaint: Psychiatric Symptoms Stated Complaint: Mental Health Time Seen by Provider: 10/15/19 20:12 - History of Present Illness Initial Comments: thisis a 54-year-old male here for evaluation presented for evaluation regards to psychiatric urination. Patient was placed on pickup resource development manager ordered pickup secondary to statements made to confluences while back. Patient presents to ER voluntarily for evaluation. Not homicidal or suicidal currently denying drug and alcohol abuse. (Alonzo Barfield) - Related Data Home Medications Medication Instructions Recorded Confirmed Aspirin [Adult Low Dose Aspirin EC] 81 mg PO DAILY 09/22/17 10/12/19 Empagliflozin/Linagliptin 1 each PO DAILY 09/22/17 10/12/19 [Glyxambi 25 mg-5 mg Tablet] Pioglitazone [Actos] 30 mg PO DAILY 09/22/17 10/12/19 Cholecalciferol [Vitamin D3 (25 1,000 unit PO DAILY 03/11/19 10/12/19 Mcg = 1000 Iu)] Lutein 20 mg PO DAILY 03/11/19 10/12/19 Multivitamin/Iron/Folic Acid 1 each PO DAILY 03/11/19 10/12/19 [Centrum Adults Tablet] Cyclobenzaprine [Flexeril] 10 mg PO TID PRN 03/14/19 10/12/19 HYDROcodone/APAP 5-325MG [[place] 1 tab PO Q6HR PRN 03/14/19 10/12/19 5-325] Meloxicam [Mobic] 7.5 mg PO BID PRN 03/14/19 10/12/19 metFORMIN HCL ER [Glucophage Xr] 500 mg PO DAILY 09/06/19 10/12/19 metFORMIN HCL [metFORMIN HCL ER] 500 mg PO DAILY 10/10/19 10/12/19 Previous Rx's Medication Instructions Recorded Ibuprofen [Motrin] 600 mg PO Q8HR PRN #20 tab 04/17/19 Allergies Allergy/AdvReac Type Severity Reaction Status Date / Time Insulins AdvReac migraines Verified 10/15/19 20:10 Review of Systems ROS Other: All systems not noted in ROS Statement are negative. <Alonzo Barfield - Last Filed: 10/15/19 20:37> ROS Other: All systems not noted in ROS Statement are negative. <Xavi Soto - Last Filed: 10/15/19 22:33> ROS Statement: Those systems with pertinent positive or pertinent negative responses have been documented in the HPI. 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 Renal stones. "Chest pain from anxiety." Memory impairment from hitting head after skiing accident last year. Macular degeneration and retinopathy bilaterally. Borderline high cholestrol. History of Any Multi-Drug Resistant Organisms: None Reported Past Surgical History: Orthopedic Surgery Additional Past Surgical History / Comment(s): Bilateral hand surgery, left foot surgery. Past Anesthesia/Blood Transfusion Reactions: No Reported Reaction Past Psychological History: Anxiety, Depression, Panic Disorder Smoking Status: Never smoker Past Alcohol Use History: None Reported Past Drug Use History: None Reported - Past Family History Mother Family Medical History: No Reported History <Alonzo Barfield - Last Filed: 10/15/19 20:37> General Exam Limitations: no limitations General appearance: alert, in no apparent distress Head exam: Present: atraumatic, normocephalic, normal inspection Eye exam: Present: normal appearance, PERRL, EOMI. Absent: scleral icterus, conjunctival injection, periorbital swelling ENT exam: Present: normal exam, mucous membranes moist Neck exam: Present: normal inspection. Absent: tenderness, meningismus, lymphadenopathy Respiratory exam: Present: normal lung sounds bilaterally. Absent: respiratory distress, wheezes, rales, rhonchi, stridor Cardiovascular Exam: Present: regular rate, normal rhythm, normal heart sounds. Absent: systolic murmur, diastolic murmur, rubs, gallop, clicks GI/Abdominal exam: Present: soft, normal bowel sounds. Absent: distended, tenderness, guarding, rebound, rigid Extremities exam: Present: normal inspection, full ROM, normal capillary refill. Absent: tenderness, pedal edema, joint swelling, calf tenderness Back exam: Present: normal inspection Neurological exam: Present: alert, oriented X3, CN II-XII intact Psychiatric exam: Present: normal affect, normal mood Skin exam: Present: warm, dry, intact, normal color. Absent: rash <Alonzo Barfield - Last Filed: 10/15/19 20:37> Course <Alonzo Barfield - Last Filed: 10/15/19 20:37> Vital Signs 10/15/19 20:06 Temperature 99.2 F Pulse Rate 100 Respiratory 20 Rate Blood Pressure 142/85 O2 Sat by Pulse 99 Oximetry - Reevaluation(s) Reevaluation #1: 10/15/19 20:38 medically cleared for psychiatric evaluation (Alonzo Barfield) Medical Decision Making - Lab Data Lab Results 10/15/19 Range/Units 21:05 Urine Opiates Screen Not Detected (NotDetected) Ur Oxycodone Screen Not Detected (NotDetected) Urine Methadone Screen Not Detected (NotDetected) Ur Propoxyphene Screen Not Detected (NotDetected) Ur Barbiturates Screen Not Detected (NotDetected) U Tricyclic Antidepress Not Detected (NotDetected) Ur Phencyclidine Scrn Not Detected (NotDetected) Ur Amphetamines Screen Not Detected (NotDetected) U Methamphetamines Scrn Not Detected (NotDetected) U Benzodiazepines Scrn Not Detected (NotDetected) Urine Cocaine Screen Not Detected (NotDetected) U Marijuana (THC) Screen Not Detected (NotDetected) Disposition <Alonzo Barfield - Last Filed: 10/15/19 20:37> Is patient prescribed a controlled substance at d/c from ED?: No <Xavi Soto - Last Filed: 10/15/19 22:33> Clinical Impression: Mood disorder Disposition: HOME SELF-CARE Condition: Good Instructions (If sedation given, give patient instructions): Mood Disorders (ED) Referrals: Oracio Lopes MD [Primary Care Provider] - 1-2 days
[2019-10-15 21:22] LABS: Amphetamine Screen,Urine Not Detected (NotDetected); Barbiturate Screen,Urine Not Detected (NotDetected); Benzodiazepines Screen,Urine Not Detected (NotDetected); Cocaine Screen,Urine Not Detected (NotDetected); Methadone Screen, Urine Not Detected (NotDetected); Opiate Screen,Urine Not Detected (NotDetected); Oxycodone Screen, Urine Not Detected (NotDetected); Phencyclidine Screen,Urine Not Detected (NotDetected); Tricyclic Antidepressant,Urine Not Detected (NotDetected); Urn Cannabinoid Scrn Not Detected (NotDetected)
[2019-10-15 23:01] VITALS: BP 124/74; PULSE 92; RESP 18
== END 2019-10-15 22:58 | disposition home or self-care (01) ==
LOC: EC 19:55
DX: F32.9 Major depressive disorder, single episode, unspecified (principal); E11.9 Type 2 diabetes mellitus without complications; F41.9 Anxiety disorder, unspecified; I25.2 Old myocardial infarction; Z79.82 Long term (current) use of aspirin; Z79.84 Long term (current) use of oral hypoglycemic drugs; Z79.899 Other long term (current) drug therapy; Z88.8 Allergy status to other drugs, medicaments and biological substances
CPT/HCPCS: 80306; 82075; 99284

== ENCOUNTER → 2019-11-07 | Day surgery (SDC) | payer MEDICARE, OTHER ==
[2019-11-03 10:44] VITALS: BMI 27.9
[~2019-11-07] MED LIST changes: +DEXAMETHASONE SOD PHOSPHATE 10 MG/ML 1 ML VIAL ONE; +IOPAMIDOL M200 10 ML VIAL ONE; +MIDAZOLAM 2 MG/2 ML VIAL ONE; +fentaNYL (PF) 50 MCG/ML 2 ML AMP ONE
[2019-11-07 06:32] VITALS: TEMP 98
[2019-11-07 06:43] LABS: Glucose,Whole Blood 191 mg/dL (75-99)
--- NOTE | 2019-11-07 07:20 | P.PCN ---
Date of Procedure: 11/07/19 Procedure(s) Performed: PROCEDURE 1. Cervical epidural steroid injection under fluoroscopic guidance, C7-T1 2. Cervical epidurogram. PREOPERATIVE DIAGNOSIS: 1- Cervical radiculopathy., 2-cervical spondylosis with cervical Facet arthropathy without myelopathy POSTOPERATIVE DIAGNOSIS: : 1- Cervical radiculopathy. 2-cervical spondylosis with cervical Facet arthropathy without myelopathy ANESTHESIA: Local anesthesia with lidocaine 1 % , and moderate sedation, with Versed 2 mg and Fentanyl 50 mcg. EBL 0 PROCEDURE INDICATION: The patient with neck pain and radiculitis unresponsive to conservative treatment consents for procedure. PROCEDURE DESCRIPTION / TECHNIQUE: The patient was seen and identified in the preoperative area. Risks, benefits, complications, including but not limited to infections ,bleeding , allergic reactions to the medications ,and not complete pain releife, and alternatives were discussed with the patient, the patient agreed to proceed with the procedure and signed the consent. Patient was taken to the OR and time out was completed. The patient was placed in the prone position on the procedure table. A pillow was placed under the patients chest to increase the cervical interlaminar space. The cervical area was prepped and draped in the usual sterile fashion. Vital signs were closely monitored during the procedure. Conscious sedation was used during the procedure to decrease patients anxiety. Using anterior-posterior fluoroscopy, the C7-T1 interlaminar space was identified and the skin over this site was marked and then infiltrated with 1% lidocaine subcutaneously. Subsequently, a 20-gauge 3-1/2-inch Tuohy epidural needle was inserted and advanced toward the epidural space by means of the ``hanging-drop technique and guided by AP and lateral fluoroscopy. The correct needle position in the epidural space was verified with the injection of 2 mL of the water soluble contrast dye Isovue-200 and observing an excellent epidurogram with the epidural spread of the dye, after negative aspiration for blood and CSF and in the absence of paresthesias. Again after negative aspiration, mixture containing 20 mg Dexamethasone and 2 ml of preservative- free normal saline injected and a washout of epidurogram was seen. Needle was withdrawn intact, skin was cleansed, and bandages were applied. Complications= none. Disposition= patient was placed in supine position and transferred to the recovery room area in stable condition and there was no evidence of upper or lower extremity motor or sensory deficit after the procedure patient was discharged from recovery room after discharge criteria met and home discharge instructions was given by the staff and patient will follow with the pain clinic in 2-4 weeks
[2019-11-07 07:26] VITALS: RESP 17
[2019-11-07 07:36] VITALS: BP 115/73; PULSE 73
--- NOTE | 2019-11-07 07:39 | FL ---
EXAMINATION TYPE: FL guided pain mgmt statistic DATE OF EXAM: 11/07/2019 CLINICAL HISTORY: Neck pain. TECHNIQUE: Fluoroscopy. COMPARISON: None. FINDINGS: Fluoroscopic guidance was provided during pain relief procedure performed by Dr. Lynn . A total of 3 seconds of fluoroscopic time was utilized during the procedure and 1 spot image was a cquired. Images acquired shows needle localization of the cervical spine. IMPRESSION: As Above.
== END ==
LOC: ORPAIN 06:16
PROVIDERS: ATTEND Specialist
DX: M47.22 Other spondylosis with radiculopathy, cervical region (principal); E11.9 Type 2 diabetes mellitus without complications; Z79.84 Long term (current) use of oral hypoglycemic drugs; Z79.82 Long term (current) use of aspirin; Z79.899 Other long term (current) drug therapy
CPT/HCPCS: 62321; J2250; J1100; J3010; Q9966; 99152

== ENCOUNTER → 2019-11-21 | Outpatient (CLI) | payer MEDICARE, OTHER ==
[2019-11-21 12:29] VITALS: BP 123/82; PULSE 83; RESP 16
--- NOTE | 2019-11-21 12:38 | P.PAINPG ---
Subjective Progress Note Date: 11/21/19 this is a follow-up visit for this 54 years old male with a history of severe neck pain with radiation to the upper extremity, and diagnosed with cervical radiculopathy, and cervical spondylosis with cervical facet arthropathy, we have done cervical epidural steroid injection, currently patient complaining of severe neck pain which is increased with any neck movement, intensity of the pain 6/10, crease with any neck movement to 8-9/10 , continue to use Motrin and he reported that he had minimal benefit , he denies any fever or night sweats, he denies any motor or sensory deficit, he denies any change in the bowel movements or urination Objective - Vital Signs Vital signs: Vital Signs Temp Pulse 83 11/21/19 12:16 Resp 16 11/21/19 12:16 BP 123/82 11/21/19 12:16 Pulse Ox 100 11/21/19 12:16 - Exam Physical Examinations : -Constitutiona : Cooperative , not in acute distress . -HEENT : nech : supple , no Lymphadenopathy , normal thyroid size . : eyes : no ptosis , no icterus, no photophobia . : ENT : normal of hearing , normal o ropharynx , no Thrush . - Respiratory : Chest clear to auscultations Bilaterally , no wheezing , no Rhonchi . - Cardiovascula : regular rate and rhythem , S1 , S2 , no S3 , no S4. - Gastrointestina : abdomen soft no tenderness , bowel sounds , no organomegally . - Genitourinary : Defferred . - neurologic : Cranial nerve II to XII intact , no focal neurological deffecit . -psychatric : alert , oriented X 3 , appropriate affect , intact judgment and insight . -Lymphatic : no Lymphadenopathy . - musculoskeltal : Cervical Spine motor stregnth in the deltoid and biceps, normal right side , normal Left side motor stregnth biceps and the wrist extensors normal right side ,normal left side . motor stregnth in the triceps muscle . normal Right side , normal Left side deep tendon reflexes normal at the biceps , normal at Brachioradialis , normal at triceps. cervical facet loading test: Positive Bilaterally Spurling test positive bilaterally. Neck distraction test positive bilaterally. Zeenat sign positive bilaterally. Lumber spine moter stegnth lower extremities ,thigh and legs 5/5 Right side , 5/5 Left side MRI of the cervical spine reviewed= multilevel cervical degenerative disc disease multilevel cervical facet arthropathy and multilevel cervical foraminal stenosis Assessment and Plan Plan: Assessment and plan=1-cervical radiculopathy. 2-cervical degenerative disc disease. 3-cervical spondylosis with cervical facet arthropathy. Patient continued to have severe neck pain after cervical epidural steroid injections, he will be in good candidate for diagnostic medial branch block cervical area, C3, C4, C5, C6, bilaterally and benefits possible proceeding with RFA Time with Patient: Less than 30 PQRS Measure Charge Sheet Measure #130: Documentation of Current Meds in Medical Chart: Patient's medications documented in chart Measure #226: Tobacco Use: Screen & Cessation Intervention: Pt not a tobacco user Measure #111: Pneumonia Vaccination: Pneumococcal vaccine NOT administered or previously given Measure #47: Advance Care Plan: Advance care planning discussed & documented, pt chose/unable to give Measure #412: Opioid Treatment Agreement: No documentation of signed opioid treatment agreement Measure #408: Opioid Therapy Follow-up Evaluation: Patient had NO f/u eval minimum every 3 months during opioid therapy Measure #317: Preventitive Care & Scrn High Bld Press & F/U: Normal blood pressure, f/u not required Measure #128: Body Mass Index (BMI) Screening & Follow-up: BMI documented ABOVE normal parameters - f/u documented Measure #131: Pain Assessment & Follow-up: Pain positive & plan documented, Follow-up scheduled Measure #431: Unhealthy Alcohol Use Preventative Care & Scrn: Patient not identified as an unhealthy alcohol user PQRS Narrative: Smoking Status Never smoker Blood Pressure 123/82 Pain Intensity [Neck] 8 Scale Used Numeric (1 - 10) Hx Alcohol Use (MH) No Home Medications: Ambulatory Orders Aspirin [Adult Low Dose Aspirin EC] 81 mg PO DAILY 09/22/17 Empagliflozin/Linagliptin [Glyxambi 25 mg-5 mg Tablet] 1 each PO DAILY 09/22/17 Pioglitazone [Actos] 30 mg PO DAILY 09/22/17 Cholecalciferol [Vitamin D3 (25 Mcg = 1000 Iu)] 1,000 unit PO DAILY 03/11/19 Lutein 20 mg PO DAILY 03/11/19 Multivitamin/Iron/Folic Acid [Centrum Adults Tablet] 1 each PO DAILY 03/11/19 Cyclobenzaprine [Flexeril] 10 mg PO TID PRN 03/14/19 HYDROcodone/APAP 5-325MG [[place] 5-325] 1 tab PO Q6HR PRN 03/14/19 Meloxicam [Mobic] 7.5 mg PO DAILY 03/14/19 Ibuprofen [Motrin] 600 mg PO Q8HR PRN #20 tab 04/17/19 metFORMIN HCL [metFORMIN HCL ER] 500 mg PO DAILY 10/10/19 metFORMIN HCL [Glucophage] 500 mg PO DAILY 11/14/19 Controlled Substance Measures - Controlled Substance Measures Is patient prescribed a controlled substance at discharge?: No
== END | disposition home or self-care (01) ==
LOC: PNWHC3 11:52
PROVIDERS: ATTEND Specialist
DX: G89.29 Other chronic pain (principal); M50.10 Cervical disc disorder with radiculopathy, unspecified cervical region; M47.22 Other spondylosis with radiculopathy, cervical region; M46.92 Unspecified inflammatory spondylopathy, cervical region; Z79.82 Long term (current) use of aspirin; Z79.1 Long term (current) use of non-steroidal anti-inflammatories (NSAID); Z79.84 Long term (current) use of oral hypoglycemic drugs; Z79.899 Other long term (current) drug therapy
CPT/HCPCS: 99211

== ENCOUNTER → 2019-11-29 | Day surgery (SDC) | payer MEDICARE, OTHER ==
[~2019-11-29] MED LIST changes: +BUPIVACAINE (PF) 0.5% 30 ML VIAL ONE; -IOPAMIDOL M200 10 ML VIAL ONE; +LACTATED RINGERS 1,000 ML IV ONE; -LACTATED RINGERS 1,000 ML IV SCH; +LIDOCAINE 1% 20 ML VIAL (10MG/ML) FOR IV START INTRADERMA ONE; -fentaNYL (PF) 50 MCG/ML 2 ML AMP ONE
[2019-11-29 08:31] VITALS: TEMP 97.3
[2019-11-29 08:38] LABS: Glucose,Whole Blood 196 mg/dL (75-99)
--- NOTE | 2019-11-29 09:42 | P.PCN ---
Date of Procedure: 11/29/19 Anesthesia: MAC (Moderate conscious sedation with IV Versed 2 mg) Surgeon: Carla Davies Pathology: none sent Condition: stable Disposition: PACU Description of Procedure: PREOPERATIVE DIAGNOSIS: Cervical Spondylosis with Facet Arthropathy.without myelopathy POSTOPERATIVE DIAGNOSIS: Cervical Spondylosis Facet Arthropathy. Without myelopathy PROCEDURES: Diagnostic Bilateral. C4,5,6 medial branchs block with fluoroscopic guidance ANESTHESIA: Local with 1% lidocaine; IV sedation with Versed only. Sedation time from 9:17 to 9:37 EBL: Minimal PROCEDURE INDICATION: The patient with neck pain secondary to cervical arthropathy unresponsive to more conservative treatments. PROCEDURE DESCRIPTION / TECHNIQUE: The patient was seen and identified in the preoperative area. Risks, benefits, complications, and alternatives were discussed with the patient, the patient agreed to proceed with the procedure and signed the consent. IV was started. Vital signs remained stable throughout the procedure. Patient was taken to the OR and time out was completed. The patient was placed in the supine position on the procedure table. . The cervical area was prepped with chloraprep and draped in the usual sterile fashion. Critical pause was taken. Vital signs were closely monitored during the procedure. Conscious sedation was used during the procedure to decrease patients anxiety. Using cross-table lateral fluoroscopy, the centers of the trapezoid of C4,5 , and C6 were identified, marked, and localized with 1% lidocaine 1 ml at each level for skin and Sub Q infiltrations . Subsequently, a 25 G 3.5 inch spinal needle was advanced guided by fluoroscopy to the target points mentioned above . Subsequently, 3 ml of preservative-free ropivacaine 0.5% mixed with Dexamethasone 10 mg and half ml of the mixture was injected at each level after negative aspiration for blood and CSF. [place] were then removed intact the same procedure was repeated at the left side. COMPLICATIONS: No acute complications. COMMENTS: DISPOSITION / PLANS: The patient was placed in a supine position and transferred to the recovery area in a stable condition for observation and was discharged from the recovery room after meeting discharge criteria. Home discharge instructions given to the patient by the staff. The patient was reexamined prior to discharge. The patient will schedule a follow up in the clinic in 2-4 weeks.
[2019-11-29 09:45] VITALS: RESP 17
[2019-11-29 09:54] VITALS: BP 121/78; PULSE 97
--- NOTE | 2019-11-29 10:49 | FL ---
EXAMINATION TYPE: FL guided pain mgmt statistic DATE OF EXAM: 11/29/2019 FLUOROSCOPY Fluoroscopy time of 13 seconds was used during the bilateral cervical medial branch blocks. 5 image/ s document/s the procedure.
== END ==
LOC: ORPAIN 07:59
PROVIDERS: ATTEND Anesthesiology
DX: M47.812 Spondylosis without myelopathy or radiculopathy, cervical region (principal); E11.9 Type 2 diabetes mellitus without complications; Z88.8 Allergy status to other drugs, medicaments and biological substances
CPT/HCPCS: 64490; 64491 ×2; J2250; J1100; 99152

== ENCOUNTER 2019-12-13 06:11 | Day surgery (SDC) | payer MEDICARE, OTHER ==
[2019-12-09 10:46] VITALS: BMI 27.9
[2019-12-13 06:49] VITALS: TEMP 97.5
[2019-12-13] MEDS ORDERED: LACTATED RINGERS 1,000 ML IV ONE ×2 (06:49)
--- NOTE | 2019-12-13 06:51 | P.PCN ---
Date of Procedure: 12/13/19 Description of Procedure: Procedure: Cervical Medial Branch Block at bilateral C3 4, C4 5, C5 6 Indications: Neck Pain Imaging: Fluoroscopy was used, images where saved to the medical record Anesthesia: Local with IV conscious sedation Description of procedure: The patient was seen and examined in the PO. Procedure risks and benefits were fully reviewed with patient. The patient understands this is a diagnostic as well as a therapeutic procedure and that the goal of the procedure is to inject medication on to the medial branch or small nerves that go into the facet joints. In this way, we can hopefully identify which of these joints, if any, may be contributing to their pain. Informed consent for the procedure was obtained. The patient was taken into the office fluoroscopy procedure room and placed supine on the table. Vital signs were closely monitored during the procedure. The skin over the area was prepped with Betadine and draped in usual sterile manner. Sterile technique was observed throughout procedure. Under fluoroscopic guidance, the target injection areas of the C C3 4, C4 5, C5 6 medial branch nerve locations were visualized in lateral views. Using bipla fermín fluoroscopy, a 25 gauge 1.5 inch needle was inserted into proper position where the tip of the needle was located at the midpoint of the quadrangle at each level. After negative aspiration for blood and CSF, 0.5cc of 0.25 % Ropivacaine was injected into each of the targeted areas. The needles were withdrawn intact. No complications were noted during the procedure. The patient tolerated procedure well. The patient was placed in supine position and transferred to the recovery area for observation and remained stable until discharged home. Home discharge instructions given to the patient by the staff. The patient was reexamined prior to discharge. Follow up/plan: Repeat in 2 weeks
[2019-12-13 06:54] LABS: Glucose,Whole Blood 121 mg/dL (75-99)
[2019-12-13] MEDS ORDERED: ROPIVACAINE 5MG/ML 20ML VIAL ONE (07:21)
[2019-12-13] MEDS ORDERED: fentaNYL (PF) 50 MCG/ML 2 ML AMP ONE (07:21)
[2019-12-13] MEDS ORDERED: MIDAZOLAM 2 MG/2 ML VIAL ONE (07:25)
[2019-12-13] MEDS ORDERED: IV FLUID CONTINUATION 475 ML IV ONE (07:41)
[2019-12-13 07:59] VITALS: BP 129/85; PULSE 69; RESP 20
--- NOTE | 2019-12-13 10:18 | FL ---
EXAMINATION TYPE: FL guided pain mgmt statistic DATE OF EXAM: 12/13/2019 FLUOROSCOPY Fluoroscopy time of 5 seconds was used during cervical facet blocks. 4 image/s document/s the proced ure.
== END 2019-12-13 08:11 | disposition home or self-care (01) ==
LOC: ORPAIN 06:11
PROVIDERS: ATTEND Hospitalist
DX: M47.812 Spondylosis without myelopathy or radiculopathy, cervical region (principal)
CPT/HCPCS: 64490; 64491; 64492; J3010; J2795; 99152

== ENCOUNTER → 2019-12-27 | Outpatient (CLI) | payer MEDICARE, OTHER ==
[2019-12-27 13:04] VITALS: BP 129/89; PULSE 80; RESP 18
--- NOTE | 2019-12-27 13:56 | P.PAINPG ---
Subjective Progress Note Date: 12/27/19 this is a follow-up visit for this 54 years old male with a history of severe neck pain with radiation to the upper extremity, and diagnosed with cervical radiculopathy, and cervical spondylosis with cervical facet arthropathy, status post diagnostic medial branch block cervical area C3, C4, C5, C6 x2 , patient reported that his pain before the first diagnostic block was 7/10 before the diagnostic block dropped to 2/10 after , and his pain was 9/10 before the second diagnostic block and the pain dropped to 3/10, , continue to use Motrin and [place] when necessary and he reported that he had minimal benefit , he denies any fever or night sweats, he denies any motor or sensory deficit, he denies any change in the bowel movements or urination Objective - Vital Signs Vital signs: Vital Signs Temp Pulse 80 12/27/19 12:57 Resp 18 12/27/19 12:57 BP 129/89 12/27/19 12:57 Pulse Ox - Exam Physical Examinations : -Constitutiona : Cooperative , not in acute distress . -HEENT : nech : supple , no Lymphadenopathy , normal thyroid size . : eyes : no ptosis , no icterus, no p hotophobia . - neurologic : Cranial nerve II to XII intact , no focal neurological deffecit . -psychatric : alert , oriented X 3 , appropriate affect , intact judgment and insight . -Lymphatic : no Lymphadenopathy . - musculoskeltal : Cervical Spine motor stregnth in the deltoid and biceps, normal right side , normal Left side motor stregnth biceps and the wrist extensors normal right side ,normal left side . motor stregnth in the triceps muscle . normal Right side , normal Left side deep tendon reflexes normal at the biceps , normal at Brachioradialis , normal at triceps. cervical facet loading test: Positive Bilaterally Spurling test positive bilaterally. Neck distraction test positive bilaterally. Zeenat sign positive bilaterally. Lumber spine moter stegnth lower extremities ,thigh and legs 5/5 Right side , 5/5 Left side Assessment and Plan Plan: Assessment and plan=1-cervical radiculopathy. 2-cervical degenerative disc disease. 3-cervical spondylosis with cervical facet arthropathy. Patient had excellent pain relief after diagnostic medial branch block cervical area and he will be good candidate to have RFA Limited branch cervical area C3, C4 ,C5, C6 will do the right side first Time with Patient: Less than 30 PQRS Measure Charge Sheet Measure #130: Documentation of Current Meds in Medical Chart: Patient's medications documented in chart Measure #226: Tobacco Use: Screen & Cessation Intervention: Pt not a tobacco user Measure #111: Pneumonia Vaccination: Pneumococcal vaccine NOT administered or previously given Measure #47: Advance Care Plan: Advance care planning discussed & documented, pt chose/unable to give Measure #412: Opioid Treatment Agreement: No documentation of signed opioid treatment agreement Measure #408: Opioid Therapy Follow-up Evaluation: Patient had NO f/u eval minimum every 3 months during opioid therapy Measure #317: Preventitive Care & Scrn High Bld Press & F/U: Normal blood pressure, f/u not required Measure #128: Body Mass Index (BMI) Screening & Follow-up: BMI documented ABOVE normal parameters - f/u documented Measure #131: Pain Assessment & Follow-up: Pain positive & plan documented, Follow-up scheduled Measure #431: Unhealthy Alcohol Use Preventative Care & Scrn: Patient not identified as an unhealthy alcohol user PQRS Narrative: Smoking Status Never smoker Blood Pressure 129/89 Pain Intensity [Lower Neck] 8 Scale Used Numeric (1 - 10) Hx Alcohol Use (MH) No Home Medications: Ambulatory Orders Empagliflozin/Linagliptin [Glyxambi 25 mg-5 mg Tablet] 1 each PO QAM 09/22/17 Pioglitazone [Actos] 30 mg PO QAM 09/22/17 Lutein 20 mg PO QAM 03/11/19 Cyclobenzaprine [Flexeril] 10 mg PO TID PRN 03/14/19 HYDROcodone/APAP 5-325MG [[place] 5-325] 1 tab PO Q6HR PRN 03/14/19 metFORMIN HCL [Glucophage] 500 mg PO QAM 11/14/19 Ibuprofen [Motrin] 600 - 800 mg PO Q8HR PRN 11/28/19 Controlled Substance Measures - Controlled Substance Measures Is patient prescribed a controlled substance at discharge?: No
== END | disposition home or self-care (01) ==
LOC: PNWHC3 12:48
PROVIDERS: ATTEND Specialist
DX: G89.29 Other chronic pain (principal); M50.10 Cervical disc disorder with radiculopathy, unspecified cervical region; M47.22 Other spondylosis with radiculopathy, cervical region; M46.92 Unspecified inflammatory spondylopathy, cervical region; Z79.84 Long term (current) use of oral hypoglycemic drugs; Z79.899 Other long term (current) drug therapy
CPT/HCPCS: 99211

== ENCOUNTER 2020-01-03 06:51 | Day surgery (SDC) | payer MEDICARE, OTHER ==
[2019-12-30 12:25] VITALS: BMI 27.9
[~2020-01-03 06:51] MED LIST changes: -BUPIVACAINE (PF) 0.5% 30 ML VIAL ONE; -DEXAMETHASONE SOD PHOSPHATE 10 MG/ML 1 ML VIAL ONE; -LACTATED RINGERS 1,000 ML IV ONE; +LACTATED RINGERS 1,000 ML IV SCH; -LIDOCAINE 1% 20 ML VIAL (10MG/ML) FOR IV START INTRADERMA ONE; -MIDAZOLAM 2 MG/2 ML VIAL ONE
[2020-01-03 07:41] VITALS: TEMP 97.4
[2020-01-03 07:45] LABS: Glucose,Whole Blood 153 mg/dL (75-99)
--- NOTE | 2020-01-03 07:48 | P.GSHP ---
History of Present Illness H&P Date: 01/03/20 this is 54 years old male with a history of severe neck pain with radiation to the upper extremity, and diagnosed with cervical radiculopathy, and cervical spondylosis with cervical facet arthropathy, he is here to have RFA Right medial branch block cervical area C3, C4, C5, C6. Past Medical History Past Medical History: Chest Pain / Angina, Diabetes Mellitus, Eye Disorder, Memory Impairment Additional Past Medical History / Comment(s): "Dupuytrens" disease (Thickening of skin on hands). right hand swollen & tender to touch-getting PT, Renal stones. "Chest pain from anxiety." Memory impairment from hitting head after skiing accident last year. Macular degeneration and retinopathy bilaterally. Borderline high cholestrol. History of Any Multi-Drug Resistant Organisms: None Reported Past Surgical History: Orthopedic Surgery Additional Past Surgical History / Comment(s): Bilateral hand surgery, left foot surgery. PAIN CLINIC PROCEDURES Past Anesthesia/Blood Transfusion Reactions: No Reported Reaction Past Psychological History: Anxiety, Depression, Panic Disorder Additional Psychological History / Comment(s): Reports cardiac response including increased heart rate to "6 different medications." Smoking Status: Never smoker Past Alcohol Use History: None Reported Past Drug Use History: None Reported - Past Family History Mother Family Medical History: No Reported History Medications and Allergies Home Medications Medication Instructions Recorded Confirmed Type Empagliflozin/Linagliptin 1 each PO QAM 09/22/17 12/30/19 History [Glyxambi 25 mg-5 mg Tablet] Pioglitazone [Actos] 30 mg PO QAM 09/22/17 12/30/19 History Lutein 20 mg PO QAM 03/11/19 12/30/19 History Cyclobenzaprine [Flexeril] 10 mg PO TID PRN 03/14/19 12/30/19 History HYDROcodone/APAP 5-325MG [[place] 1 tab PO Q6HR PRN 03/14/19 12/30/19 History 5-325] metFORMIN HCL [Glucophage] 500 mg PO QAM 11/14/19 12/30/19 History Ibuprofen [Motrin] 600 - 800 mg PO Q8HR PRN 11/28/19 12/30/19 History Allergies Allergy/AdvReac Type Severity Reaction Status Date / Time Insulins AdvReac migraines Verified 12/30/19 12:19 Surgical - Exam Vital Signs Temp Pulse Resp BP Pulse Ox 97.4 F L 77 20 106/52 97 01/03/20 07:39 01/03/20 07:39 01/03/20 07:39 01/03/20 07:39 01/03/20 07:39 -Constitutiona : Cooperative , not in acute distress . -HEENT : nech : supple , no Lymphadenopathy , normal thyroid size . : eyes : no ptosis , no icterus, no photophobia . - neurologic : Cranial nerve II to XII intact , no focal neurological deffecit . -psychatric : alert , oriented X 3 , appropriate affect , intact judgment and insight . -Lymphatic : no Lymphadenopathy . - musculoskeltal : Cervical Spine motor stregnth in the deltoid and biceps, normal right side , normal Left side motor stregnth biceps and the wrist extensors normal right side ,normal left side . motor stregnth in the triceps muscle . normal Right side , normal Left side deep tendon reflexes normal at the biceps , normal at Brachioradialis , normal at triceps. cervical facet loading test: Positive Bilaterally Spurling test positive bilaterally. Neck distraction test positive bilaterally. Zeenat sign positive bilaterally. Lumber spine moter stegnth lower extremities ,thigh and legs 5/5 Right side , 5/5 Left side Assessment and Plan Plan: Assessment and plan=1-cervical radiculopathy. 2-cervical degenerative disc disease. 3-cervical spondylosis with cervical facet arthropathy. Patient had excellent pain relief after diagnostic medial branch block cervical area and heis here today to have RFA medial branch cervical area C3, C4 ,C5, C6 (right side ) Time with Patient: Less than 30
[2020-01-03] MEDS ORDERED: MIDAZOLAM 2 MG/2 ML VIAL ONE (07:56)
[2020-01-03] MEDS ORDERED: fentaNYL (PF) 50 MCG/ML 2 ML AMP ONE (07:56)
[2020-01-03] MEDS ORDERED: ROPIVACAINE 5MG/ML 20ML VIAL ONE (07:56)
[2020-01-03] MEDS ORDERED: methylPREDNISolone ACETATE 40 MG/ML 1 ML VIAL ONE (07:56)
--- NOTE | 2020-01-03 08:40 | P.PCN ---
Date of Procedure: 01/03/20 Procedure(s) Performed: PREOPERATIVE DIAGNOSIS: Cervical spondylosis with Facet Arthropathy without myelopathy. POSTOPERATIVE DIAGNOSIS: Cervical spondylosis with Facet Arthropathy without myelopathy. PROCEDURES: Radiofrequency thermocoagulation Right C3, C4, C5, C6 medial branch with Fluroscopy Guidence(fluoroscopy was available in etiology department ) (to denervate the facet joint at C3- 4 , C4- 5 , C5- 6 ) ANESTHESIA: moderate sedation with fentanyl 100 micrograms and Versed 2 mg EBL: Minimal PROCEDURE INDICATION: The patient with neck pain secondary to cervical arthropathy who had more than 50% relief of her pain with previous diagnostic cervical medial branch block. PROCEDURE DESCRIPTION / TECHNIQUE: The patient was seen and identified in the preoperative area. Risks, benefits, complications, and alternatives were discussed with the patient, the patient agreed to proceed with the procedure and signed the consent. IV was started. Vital signs remained stable throughout the procedure. Patient was taken to the OR and time out was completed. The patient was placed in the prone position on the procedure table. A pillow was placed under the patients chest to increase the cervical interlaminar space. The cervical area was prepped and draped in the usual sterile fashion. Critical pause was taken. Vital signs were closely monitored during the procedure. Conscious sedation was used during the procedure to decrease patients anxiety. Using cross-table lateral fluoroscopy, the centroid of the trapezoid of right C3, C4, C5, and C6 were identified, marked, and localized with 1% lidocaine. Subsequently, a 20 [id number] radiofrequency cannula with a 10-mm active tip was advanced guided by fluoroscopy to the centroid of the trapezoid of C3, C4, C5, and C6 . Needle tip position was confirmed at the centroid of the trapezoids of C3, C4, C5, and C6 with anteroposterior fluoroscopy. Each site then underwent sensory testing at 50 Hz and 0 to 1 volt and motor testing at 2 Hz and 0 to 3 volt with local stimulation, but no radicular symptoms down the arm. Thereafter each sites underwent radiofrequency thermocoagulation at 80 degrees celsius for 90 seconds after injecting 0.5 ml of PF Ropivacaine 0.5 %. After thermocoagulation, 1 ml of the block solution containing Depo-Medrol 40 mg and 5 mL of preservative-free normal saline was injected at the right C3, C4, C5, and C6 levels after negative aspiration of CSF and blood and with no paresthesias. Cannulas were retracted while injecting lidocaine 1% until the needle is out. Skin was cleansed and bandages were applied. COMPLICATIONS: No acute complications. DISPOSITION / PLANS: The patient was placed in a supine position and transferred to the recovery area in a stable condition for observation and was discharged from the recovery room after meeting discharge criteria. Home discharge instructions given to the patient by the staff. The patient was reexamined prior to discharge. The patient will schedule a follow up in the clinic in 2-4 weeks.
[2020-01-03] MEDS ORDERED: IV FLUID CONTINUATION 500 ML IV ONE (08:45)
[2020-01-03 08:51] VITALS: RESP 18
[2020-01-03 09:01] VITALS: BP 131/81; PULSE 78
--- NOTE | 2020-01-03 09:15 | FL ---
EXAMINATION TYPE: FL guided pain mgmt statistic DATE OF EXAM: 01/03/2020 CLINICAL HISTORY: Neck pain. TECHNIQUE: Fluoroscopy. COMPARISON: None. FINDINGS: Fluoroscopic guidance was provided during pain relief procedure performed by Dr. Lynn . A total of 59 seconds of fluoroscopic time was utilized during the procedure and two spot images a re acquired. Images acquired shows needle localization at multiple levels from posterior approach in the cervical spine. IMPRESSION: As Above.
== END 2020-01-03 09:15 | disposition home or self-care (01) ==
LOC: ORPAIN 06:51
PROVIDERS: ATTEND Specialist
DX: M47.22 Other spondylosis with radiculopathy, cervical region (principal); M51.16 Intervertebral disc disorders with radiculopathy, lumbar region; F41.9 Anxiety disorder, unspecified; F32.9 Major depressive disorder, single episode, unspecified; F41.0 Panic disorder [episodic paroxysmal anxiety]; E11.9 Type 2 diabetes mellitus without complications; E78.00 Pure hypercholesterolemia, unspecified; Z87.442 Personal history of urinary calculi; Z79.84 Long term (current) use of oral hypoglycemic drugs; Z79.899 Other long term (current) drug therapy; Z88.8 Allergy status to other drugs, medicaments and biological substances; Z98.890 Other specified postprocedural states
CPT/HCPCS: 64633; 64634 ×2; J2250; J1030; J3010; J2795; 99152; 99153

== ENCOUNTER → 2020-03-20 | Outpatient (CLI) | payer MEDICARE, OTHER | END | disposition home or self-care (01) | LOC: LABWHC1 14:20 | PROVIDERS: ATTEND Family Medicine | DX: Z11.59 Encounter for screening for other viral diseases (principal) | CPT/HCPCS: 87635 ==

== ENCOUNTER 2020-03-22 10:46 | Day surgery (SDC) | payer MEDICARE, OTHER ==
[2020-03-21 11:04] VITALS: BMI 28.7
[2020-03-22 11:25] VITALS: RESP 16; TEMP 97
[2020-03-22 11:26] LABS: Glucose,Whole Blood 209 mg/dL (75-99)
[2020-03-22] MEDS ORDERED: LIDOCAINE 1% (10MG/ML) FOR IV START INTRADERMA ONE (11:26)
[2020-03-22] MEDS ORDERED: LIDOCAINE 4% (PF) 5 ML AMP ONE (12:04)
[2020-03-22] MEDS ORDERED: MIDAZOLAM 2 MG/2 ML VIAL ONE (12:04)
[2020-03-22] MEDS ORDERED: fentaNYL (PF) 50 MCG/ML 2 ML AMP ONE (12:04)
[2020-03-22] MEDS ORDERED: IV FLUID CONTINUATION 200 ML IV ONE (12:43)
--- NOTE | 2020-03-22 12:44 | P.PCN ---
Date of Procedure: 03/22/20 Procedure(s) Performed: PREOPERATIVE DIAGNOSIS: Cervical spondylosis POSTOPERATIVE DIAGNOSIS: Same PROCEDURES: Radiofrequency thermocoagulation of the C3, C4, C5, C6 medial branches with fluoroscopic guidance on the left side for facets C3-4, C4-5, C5-6 SURGEON: Asha Adorno M.D. ANESTHESIA: Moderate sedation with intravenous versed and fentanyl and local infiltration with lidocaine 1% 5 ml , sedation time 26 minutes Fluoroscopy was used for the procedure and fluoroscopic images were saved to the radiology portion of patient's chart. EBL: Minimal PROCEDURE INDICATION: The patient with low back pain secondary to cervical facet arthropathy who had more than 50% relief of pain with previous diagnostic cervical medial branch block. PROCEDURE DESCRIPTION / TECHNIQUE: The patient was seen and identified in the preoperative area. Risks, benefits, complications, including but not limited to risk of infection ,bleeding , allergic reactions to the medications and incomplete pain relief , and alternatives were discussed with the patient, the patient agreed to proceed with the procedure and signed the consent. IV was started. The operative site was marked. Patient was taken to the OR and time out was completed. The patient was placed in the prone position on the procedure table. The cervical area was prepped and draped in the usual sterile fashion. . Vital signs were closely monitored during the procedure .IV sedation was used during the procedure to decrease patients anxiety. Using AP and then oblique fluoroscopy, the waist corresponding to the connection between the superior and transverse articular processes of the above-mentioned levels were identified, marked, and localized with 1% lidocaine. Subsequently, an 18 -yu radiofrequency cannula with a 10-mm active tip was advanced guided by fluoroscopy to the midpoint of the centroid on the lateral view of the corresponding cervical vertebral bodies at each site then underwent motor testing at 2.5 Hz and 0 to 3 volt with local stimulation, but no radicular symptoms down the arms. Then the sites underwent radiofrequency thermocoagulation at 80 degrees celsius for 90 seconds after injecting 0.5 ml of PF lidocaine 4%. Cannulas were removed, the skin was cleansed and bandages were applied. COMPLICATIONS: No acute complications. DISPOSITION / PLANS: The patient was placed in a supine position and transferred to the recovery area in a stable condition for observation and was discharged from the recovery room after meeting discharge criteria. Home discharge instructions given to the patient by the staff. The patient will follow up in clinic in 2-4 weeks.
--- NOTE | 2020-03-22 12:48 | FL ---
EXAMINATION TYPE: FL guided pain mgmt statistic DATE OF EXAM: 03/22/2020 CLINICAL HISTORY: Neck pain. TECHNIQUE: Fluoroscopy. COMPARISON: None. FINDINGS: Fluoroscopic guidance was provided during pain relief procedure performed by Dr. Adorno. A t otal of 11 seconds of fluoroscopic time was utilized during the procedure and 6 spot images are acqui red. Images acquired shows needle localization at multiple levels in the cervical spine. IMPRESSION: As Above.
[2020-03-22 13:12] VITALS: BP 122/80; PULSE 89
== END 2020-03-22 13:18 | disposition home or self-care (01) ==
LOC: ORPAIN 10:46
PROVIDERS: ATTEND Anesthesiology
DX: M47.812 Spondylosis without myelopathy or radiculopathy, cervical region (principal); M54.5 Low back pain
CPT/HCPCS: 64633; 64634 ×2; J2001; J2250; J3010; 99152; 99153

== ENCOUNTER → 2020-04-04 | Outpatient (CLI) | payer MEDICARE, OTHER ==
[2020-04-04 09:11] VITALS: BP 109/74; PULSE 99; RESP 18
--- NOTE | 2020-04-04 09:35 | P.PN ---
Progress Note - Text Progress Note Date: 04/04/20 Progress Note - Text 54-year-old male presents for follow-up, chief complaint neck pain. He status post bilateral radio efficacy ablation C3-C4, C4-C5, C5-C6. On March 22 he had the left side completed. He is complaining of persistent pain post- procedurally. He states he's had pain in the upper portion of his left neck along C3 and C4. He also states "I'm having a difficult time holding up my neck". When asked to compare his symptoms post RFA is pre-RFA states that he's always had myalgias along the left side of his neck typically rotating his neck and states that it slightly increased than prior to the RFA. His pain prior to the RFA could reach a 9-10 out of 10 in severity. He states currently the pain reaches that level quicker than before. He has no complaints of right-sided neck pain to some infrequent muscle aches along the superior portion of the scapula. He states lateral rotation bilaterally is the same as prior to the RFA. He denies any weakness or radicular pain into his neck trapezius muscles shoulders or extremities bilaterally. He does have a relatively flat affect and provides very little effort on physical exam in upper and lower extremities. He's tried heat, ice, pain medications, muscle relaxants with little benefit. Overall he denies any new symptoms however just slight exacerbation of previous symptoms. In addition to above, 13-point review of systems is also negative for chest pain, shortness of breath, changes in vision, changes in hearing, new onset weakness, abdominal pain, diarrhea, extreme fatigue, malaise, fever, skin changes, homicidal or suicidal ideation, or bowel or bladder incontinence. Vital Signs: Reviewed in EMR Gen: WDWN, AAOx3, NAD HEENT: NCAT, EOMI, hearing grossly normal Pulm: resp unlabored Abd: soft, NT, ND Neck: supple, trachea midline ROM in flexion cervical spine: Limited secondary to effort and pain. ROM in extension cervical spine: Limited secondary to effort and pain. Cervical paravertebral tenderness: Tenderness to palpation along left C3-C4 cervical paraspinal muscles. Cervical Facet tenderness: + Spurling's: Negative ROM in flexion lumbar spine: Limited secondary to effort ROM in extension lumbar spine: Limited secondary to effort Lumbar paravertebral tenderness: Negative Facet loading: Negative SI joint tenderness: Negative David's test: Negative Straight leg raise: Negative Neuro: Muscle strength in upper and lower extremities is symmetrical. Very little effort given with flexion and extension maneuvers of tricep, bicep, deltoids, lower extremity dorsiflexion and plantar flexion, as well as hip flexion. Unable to move against resistance. Imaging: Reviewed in EMR Assessment: 1. Cervical spondylosis without myelopathy 2. Cervical degenerative disc disease 3. Diabetic, poorly controlled. Plan: 1. Explanation: Opioid and psychological risk scores were reviewed. Diagnoses, prognoses, and multiple treatment options including but not limited to physical therapy, interventional therapies, adjuvant medical therapies, narcotic medication therapies, and surgery were discussed with the patient and all questions were answered to the patient's satisfaction. 2. Opioid agreement: None from out clinic 3. Counseling: No counseling given 4. Procedures: None at the moment 5. Consultations: None 6. Investigations: Maps reviewed and appropriate. 7. Medications: We'll prescribe Robaxin 5 mg 2 tablets 3 times a day as needed. 8. Disposition: At the moment little concern for any new deficits secondary to procedure. I reviewed the images personally and RFA needles were an excellent position in all views provided. Patient has no nerve deficits and likely is experiencing postprocedural neuralgia. He is 13 days post procedure and at times can take up to 4 weeks to resolve postprocedural discomfort. I encouraged patient to continue with heating and cooling as well as increase his meloxicam to 7.5 mg twice a day. His physical exam findings don't indicate any gross neurologic deficit, he appears to have mostly musculoskeletal tenderness on the left cervical paraspinal muscles. At baseline he does have these complaints. The procedure could have exacerbated them. If pain persists in 2 weeks when he is to follow-up again will consider an EMG and MRI of the cervical spine to rule out any possible procedure complication. I instructed patient to come back in 2 weeks.
== END | disposition home or self-care (01) ==
LOC: PNWHC3 08:42
PROVIDERS: ATTEND Anesthesiology
DX: M47.812 Spondylosis without myelopathy or radiculopathy, cervical region (principal); M50.30 Other cervical disc degeneration, unspecified cervical region; Z98.890 Other specified postprocedural states; E11.9 Type 2 diabetes mellitus without complications
CPT/HCPCS: 99211

== ENCOUNTER → 2020-04-25 | Outpatient (CLI) | payer MEDICARE, OTHER ==
[2020-04-25 10:11] VITALS: BP 123/74; PULSE 88; RESP 18; TEMP 98.4
--- NOTE | 2020-04-25 10:32 | P.PAINPG ---
Subjective Progress Note Date: 04/25/20 54-year-old male presents for follow-up, chief complaint neck pain. He status post bilateral radio efficacy ablation C3-C4, C4-C5, C5-C6. On March 22 he had the left side completed. Initially he had some procedure-related discomfort. This has since resolved. He states that the procedure helped him by more than 75%, his neck pain is currently rated as 2/10, in the past it was 8/10. He also notes that pain radiating into upper extremities has stopped. Today, he is complaining of bilateral pain in the trapezius, cervical paraspinals, rhomboids. Pain does not radiate to upper extremities. Pain is rated as 7/10, worse on the left side, worse with looking down. Pain is better with heat, TENS unit, medications. He states that he can feel palpable muscle bunching. He currently takes Percocet, Robaxin, Mobic. Only Robaxin ss prescribed by our clinic. He denies side effects, medications are helping. In addition to above, 13-point review of systems is also negative for chest pain, shortness of breath, changes in vision, changes in hearing, new onset weakness, abdominal pain, diarrhea, extreme fatigue, malaise, fever, skin changes, homicidal or suicidal ideation, or bowel or bladder incontinence. Vital Signs: Reviewed in EMR Gen: WDWN, AAOx3, NAD HEENT: NCAT, EOMI, hearing grossly normal Pulm: resp unlabored Abd: ND Cardiovascular: No pedal edema Neck: trachea midline Musculoskeletal: ROM in flexion cervical spine: Limited secondary to effort and pain. ROM in extension cervical spine: Limited secondary to effort and pain. Cervical paravertebral tenderness: Tenderness to palpation along bilateral cervical paraspinal muscles, bilateral trapezius and rhomboid muscles, with palpable trigger points. Zeenat sign is negative. Neuro: Muscle strength in upper extremities is normal and symmetrical. Cranial nerves are grossly intact. No loss of sensation noted. Imaging: Reviewed in EMR Assessment: 1. Cervical spondylosis without myelopathy 2. Cervical degenerative disc disease 3. Diabetic, poorly controlled. 4. Myofascial pain syndrome of cervical paraspinal muscles, trapezius, rhomboids bilaterally Plan: 1. Counseling: He was instructed to continue neck exercises and continue using TENS unit 2. Procedures: We will schedule bilateral trigger points to cervical paraspinals, trapezius, rhomboids 3. Medications: No changes 4. Disposition: For above-mentioned procedure PQRS Measure Charge Sheet Measure #130: Documentation of Current Meds in Medical Chart: Patient's medications documented in chart Measure #226: Tobacco Use: Screen & Cessation Intervention: Pt not a tobacco user Measure #111: Pneumonia Vaccination: Pneumococcal vaccine NOT administered or previously given Measure #47: Advance Care Plan: Advance care planning discussed & documented, pt chose/unable to give Measure #412: Opioid Treatment Agreement: No documentation of signed opioid treatment agreement Measure #408: Opioid Therapy Follow-up Evaluation: Patient had NO f/u eval minimum every 3 months during opioid therapy Measure #317: Preventitive Care & Scrn High Bld Press & F/U: Normal blood pressure, f/u not required Measure #128: Body Mass Index (BMI) Screening & Follow-up: BMI documented within normal parameters Measure #131: Pain Assessment & Follow-up: Pain positive & plan documented, Follow-up scheduled Measure #431: Unhealthy Alcohol Use Preventative Care & Scrn: Patient not identified as an unhealthy alcohol user PQRS Narrative: Smoking Status Never smoker Pain Intensity [Neck] 8 Hx Alcohol Use (MH) No Home Medications: Ambulatory Orders Empagliflozin/Linagliptin [Glyxambi 25 mg-5 mg Tablet] 1 each PO QAM 09/22/17 Pioglitazone [Actos] 30 mg PO QAM 09/22/17 Lutein 20 mg PO QAM 03/11/19 metFORMIN HCL [Glucophage] 500 mg PO QAM 11/14/19 Cholecalciferol [Vitamin D3 (25 Mcg = 1000 Iu)] 1,000 unit PO DAILY 03/21/20 Magnesium 500 mg PO DAILY 03/21/20 metFORMIN HCL ER [Glucophage Xr] 500 mg PO DAILY 03/21/20 oxyCODONE-APAP 5-325MG [Percocet 5-325 mg] 1 tab PO DIRECTED PRN 03/21/20 Meloxicam [Mobic] 7.5 mg PO BID 04/04/20 Methocarbamol [Robaxin] 500 mg PO BID PRN 04/04/20 Controlled Substance Measures - Controlled Substance Measures Is patient prescribed a controlled substance at discharge?: No
== END | disposition home or self-care (01) ==
LOC: PNWHC3 09:56
PROVIDERS: ATTEND Anesthesiology
DX: M47.816 Spondylosis without myelopathy or radiculopathy, lumbar region (principal); M51.36 Other intervertebral disc degeneration, lumbar region; E11.9 Type 2 diabetes mellitus without complications; M79.18 Myalgia, other site; Z79.899 Other long term (current) drug therapy; Z79.891 Long term (current) use of opiate analgesic; Z79.84 Long term (current) use of oral hypoglycemic drugs
CPT/HCPCS: 99211

== ENCOUNTER 2020-05-10 08:24 | Day surgery (SDC) | payer MEDICARE, OTHER ==
[2020-05-08 15:59] VITALS: BMI 28.7
[2020-05-10 08:59] VITALS: RESP 16; TEMP 98.3
[2020-05-10] MEDS ORDERED: LIDOCAINE 1% (10MG/ML) FOR IV START INTRADERMA ONE (09:00)
[2020-05-10 09:02] LABS: Glucose,Whole Blood 186 mg/dL (75-99)
[2020-05-10] MEDS ORDERED: methylPREDNISolone ACETATE 40 MG/ML 1 ML VIAL ONE (09:35)
[2020-05-10] MEDS ORDERED: ROPIVACAINE 5MG/ML 20ML VIAL ONE (09:35)
[2020-05-10] MEDS ORDERED: IV FLUID CONTINUATION 1,000 ML IV ONE (09:49)
--- NOTE | 2020-05-10 09:51 | P.PCN ---
Date of Procedure: 05/10/20 Procedure(s) Performed: Procedure= reappoint injection cervical paraspinal muscles, rhomboid muscle, trapezius muscle, bilaterally total of 6 trigger point injected , 3 on the right side and 3 on the left side Preoperative diagnosis= 1-myofascial pain syndrome cervical area. 2-cervical spondylosis with cervical facet arthropathy without myelopathy Postoperative diagnosis=Same as preop Diagnosis . Complication = none Condition= stable Anesthesia=none Indication for the procedure= patient complaining of neck back pain , examination was positive for multiple trigger point in the cervical paraspinal muscles trapezius muscle and also the rhomboid muscles condition here today for trigger point injections, Description of the procedure= procedure risk and benefits discussed with the patient, including but not limited, risk of infection and bleeding, and ALLERGIC reaction to the medication and not complete pain relief and patient agreed with the preceding patient taken to the operating room, placed in sitting position position or standard monitors applied to the patient then ,then cervical area prepped with chlorhexidine 3 times , Then under strict technique, using 25-gauge needles, mixture of ropivacaine 0.5% 12 on the mixed with 40 mg of Depo-Medrol, each of the trigger point injected with 2 mL of the mixture, ejection done after negative aspiration and there was no paresthesia during the injection, 3 trigger point injected on the right side cervical paraspinal muscles and trapezius muscle and the right rhomboid muscle, and the same muscles done on the left side left side cervical paraspinal muscles and left trapezius muscle and left rhomboid muscle, patient tolerated the procedure well without any complications and he will follow up in the pain clinic in a few weeks
[2020-05-10 09:52] VITALS: BP 124/80; PULSE 81
== END 2020-05-10 10:03 | disposition home or self-care (01) ==
LOC: ORPAIN 08:24
PROVIDERS: ATTEND Specialist
DX: M79.18 Myalgia, other site (principal); M47.812 Spondylosis without myelopathy or radiculopathy, cervical region; E11.9 Type 2 diabetes mellitus without complications; Z88.4 Allergy status to anesthetic agent
CPT/HCPCS: 20553; J1030; J2795

== ENCOUNTER → 2020-06-13 | Outpatient (CLI) | payer MEDICARE, OTHER ==
[2020-06-13 11:36] VITALS: RESP 16
[2020-06-13 11:54] VITALS: BP 128/83; PULSE 77; TEMP 98
--- NOTE | 2020-06-13 12:23 | P.PAINPG ---
Subjective Progress Note Date: 06/13/20 54-year-old male presents for follow-up, chief complaint neck pain. He is s/p bilateral cervical paraspinal muscle trigger point injections. In the past he had bilateral RFA of C3-C4, C4-C5, and C5-C6. Those helped with 75% of his discomfort at the time. At our last visit he was complaining of pain in the traps, cervical paraspinals, and rhomboids, hence the trigger point injections. Patient notes that he had excellent relief from these trigger point injections especially on the left side. He reports 70% relief on the left side and 20% relief on the right side. He also notes that since injections he has significantly increased range of motion in his cervical spine. He notes that these specific injections helped more than some of his other intervention such as a radiofrequency ablations. When asked he said he might about 50% relief from the radiofrequency ablations for a few months but that's about it. Overall all the interventions that have been done to him have helped him with his pain. To recap, he had bilateral radio efficacy ablation C3-C4, C4-C5, C5-C6. On March 22 he had the left side completed. Initially he had some procedure-related discomfort. This has since resolved.. Today, he is complaining of bilateral pain in the trapezius, cervical paraspinals, rhomboids. Pain does not radiate to upper extremities. Pain is rated as 7/10 on the right and a 3 out of 10 on the left. Pain is better with heat, TENS unit, medications. He states that he can feel palpable muscle bunching. He currently takes Percocet, Robaxin, Mobic. Only Jarod is prescribed by our clinic. We have prescribed Robaxin the past however he takes he very rarely He denies side effects, medications are helping. In addition to above, 13-point review of systems is also negative for chest pain, shortness of breath, changes in vision, changes in hearing, new onset weakness, abdominal pain, diarrhea, extreme fatigue, malaise, fever, skin changes, homicidal or suicidal ideation, or bowel or bladder incontinence. Vital Signs: Reviewed in EMR Gen: WDWN, AAOx3, NAD HEENT: NCAT, EOMI, hearing grossly normal Pulm: resp unlabored Abd: ND Cardiovascular: No pedal edema Neck: trachea midline Musculoskeletal: ROM in flexion cervical spine: Intact with some limitation due to pain ROM in extension cervical spine: Intact with some limitation due to pain Cervical paravertebral tenderness: Tenderness to palpation along right cervical paraspinal muscles, bilateral trapezius and rhomboid muscles, with palpable trigger points. Zeenat sign is negative. Neuro: Muscle strength in upper extremities is normal and symmetrical. Cranial nerves are grossly intact. No loss of sensation noted. Imaging: Reviewed in EMR Assessment: 1. Cervical spondylosis without myelopathy 2. Cervical degenerative disc disease 3. Diabetic, poorly controlled. 4. Myofascial pain syndrome of cervical paraspinal muscles, trapezius, rhomboids bilaterally Plan: 1. Counseling: He was instructed to continue neck exercises and continue using TENS unit 2. Procedures: We will schedule bilateral trigger points to cervical paraspinals, trapezius, rhomboids as he had great relief last time. Focus should be taken on the right side is noted at the injections did not help as much on the right side, but he can feel palpable trigger point that he feels if injected would be of great help 3. Medications: Refilled his Mobic 7.5 mg twice a day 4. Disposition: For above-mentioned procedure Smoking Status Never smoker Pain Intensity [Neck] 8 Hx Alcohol Use (MH) No PQRS Measure Charge Sheet Measure #226: Tobacco Use: Screen & Cessation Intervention: Pt not a tobacco use r Measure #111: Pneumonia Vaccination: Pneumococcal vaccine NOT administered or previously given Measure #47: Advance Care Plan: Advance care planning discussed & documented, pt chose/unable to give Measure #131: Pain Assessment & Follow-up: Pain positive & plan documented, Follow-up scheduled PQRS Narrative: Smoking Status Never smoker Pain Intensity [Neck] 7 Hx Alcohol Use (MH) No Home Medications: Ambulatory Orders Empagliflozin/Linagliptin [Glyxambi 25 mg-5 mg Tablet] 1 each PO QAM 09/22/17 Pioglitazone [Actos] 30 mg PO QAM 09/22/17 Lutein 20 mg PO QAM 03/11/19 metFORMIN HCL [Glucophage] 500 mg PO QAM 11/14/19 Cholecalciferol [Vitamin D3 (25 Mcg = 1000 Iu)] 1,000 unit PO DAILY 03/21/20 Magnesium 500 mg PO DAILY 03/21/20 metFORMIN HCL ER [Glucophage Xr] 500 mg PO DAILY 03/21/20 oxyCODONE-APAP 5-325MG [Percocet 5-325 mg] 1 tab PO Q6H PRN 03/21/20 methocarbamoL [Robaxin] 500 mg PO TID PRN 04/04/20 Meloxicam [Mobic] 7.5 mg PO BID 30 Days #60 tab 06/13/20 Controlled Substance Measures - Controlled Substance Measures Is patient prescribed a controlled substance at discharge?: No
== END | disposition home or self-care (01) ==
LOC: PNWHC3 11:03
PROVIDERS: ATTEND Anesthesiology
DX: M50.30 Other cervical disc degeneration, unspecified cervical region (principal); M47.812 Spondylosis without myelopathy or radiculopathy, cervical region; E11.65 Type 2 diabetes mellitus with hyperglycemia; M79.18 Myalgia, other site; Z79.84 Long term (current) use of oral hypoglycemic drugs; Z79.1 Long term (current) use of non-steroidal anti-inflammatories (NSAID); Z79.891 Long term (current) use of opiate analgesic; Z79.899 Other long term (current) drug therapy
CPT/HCPCS: 99211

== ENCOUNTER 2020-06-18 23:40 | Emergency (ER) | payer MEDICARE, OTHER ==
--- NOTE | 2020-06-18 23:58 | ED ---
Eye Problem HPI - General Chief complaint: Eye Problems Stated complaint: left eye pain Time Seen by Provider: 06/18/20 23:48 Source: patient Mode of arrival: ambulatory Limitations: no limitations - History of Present Illness Initial comments: Ronak a 54-year-old male with a history of macular edema for which she has been receiving her ocular injections of steroids once monthly for the past 3 years. Patient reports that today he had an injection in this evening developed severe pain in his left eye. He reports that since the injection his pupil has been dilated his vision is blurry he cannot focus. Pain is progressively worsening and not getting better. He's never experienced this after an injection before. Patient states only recent change is that 3 weeks ago he was told that his pressure in his eyes were increasing and he was started on drops 2 times daily which he has been compliant with. - Related Data Home Medications Medication Instructions Recorded Confirmed Empagliflozin/Linagliptin 1 each PO QAM 09/22/17 06/15/20 [Glyxambi 25 mg-5 mg Tablet] Pioglitazone [Actos] 30 mg PO QAM 09/22/17 06/15/20 Lutein 20 mg PO QAM 03/11/19 06/15/20 Cholecalciferol [Vitamin D3 (25 1,000 unit PO DAILY 03/21/20 06/15/20 Mcg = 1000 Iu)] Magnesium 500 mg PO DAILY 03/21/20 06/15/20 metFORMIN HCL ER [Glucophage Xr] 500 mg PO DAILY 03/21/20 06/15/20 oxyCODONE-APAP 5-325MG [Percocet 1 tab PO Q6H PRN 03/21/20 06/15/20 5-325 mg] methocarbamoL [Robaxin] 500 mg PO TID PRN 04/04/20 06/15/20 Previous Rx's Medication Instructions Recorded Meloxicam [Mobic] 7.5 mg PO BID 30 Days #60 tab 06/13/20 Allergies Allergy/AdvReac Type Severity Reaction Status Date / Time Insulins AdvReac migraines Verified 06/18/20 23:47 Review of Systems ROS Statement: Those systems with pertinent positive or pertinent negative responses have been documented in the HPI. ROS Other: All systems not noted in ROS Statement are negative. Past Medical History Past Medical History: Chest Pain / Angina, Diabetes Mellitus, Eye Disorder, Memory Impairment, Skin Disorder Additional Past Medical History / Comment(s): "Dupuytrens" disease (Thickening of skin on hands), Rt hand sl tender, Hx. of renal stones. "Chest pain from anxiety." Occ Memory impairment from skiing accident last year. Macular degene ration and retinopathy bilaterally. Borderline high cholestrol. History of Any Multi-Drug Resistant Organisms: None Reported Past Surgical History: Orthopedic Surgery Additional Past Surgical History / Comment(s): Bilateral hand surgery, Foreign Body Removal left foot. PAIN CLINIC PROCEDURES Past Anesthesia/Blood Transfusion Reactions: Previous Problems w/ Anesthesia Additional Past Anesthesia/Blood Transfusion Reaction / Comment(s): [place] increased depression after hand surgery x1 Past Psychological History: Anxiety, Depression, Panic Disorder Smoking Status: Never smoker Past Alcohol Use History: None Reported Past Drug Use History: None Reported - Past Family History Mother Family Medical History: No Reported History General Exam - General Exam Comments Initial Comments: Physical Exam GENERAL: Acute distress secondary to pain HENT: Normocephalic, Atraumatic. EYES: Left pupil is round, fully dilated nonreactive Right pupil round, reactive to light PULMONARY: Unlabored respirations. CARDIOVASCULAR: RRR Warm and well perfused extremities ABDOMEN: Non-distended SKIN: No rashes or bruising : Deferred NEUROLOGIC: Alert and oriented Normal speech Normal gait MUSCULOSKELETAL: Moving all extremities with no apparent injury PSYCHIATRIC: No SI/HI Limitations: no limitations Eye exam: Present: EOMI, conjunctival injection. Absent: normal appearance, PERRL, scleral icterus, nystagmus, periorbital swelling, periorbital tenderness Pupils: Present: irregular Expanded Eyelids: Normal Inspection: Bilateral Pupils: Regular, Round: Bilateral, Reactive: Bilateral, Mydriasis: Left Sclera/Conjunctival: Normal Inspection: Right, Injection: Left Anterior chamber: Normal Inspection: Bilateral Posterior chamber: Deferred: Bilateral IOP (L) in mmH (Checked 3x - 22, 21, 21) IOP measured with: other ([facility]) Course Vital Signs 06/18/20 06/19/20 23:45 01:34 Temperature 99.3 F 98.0 F Pulse Rate 79 75 Respiratory 20 18 Rate Blood Pressure 156/96 122/80 O2 Sat by Pulse 99 95 Oximetry Medical Decision Making - Medical Decision Making The patient was seen and evaluated, history is obtained from the patient Patient underwent injections in his bilateral eyes earlier today, patient reports that after the procedure he notices his left pupil seemed to be more dilated than it typically is after these injections and once the numbing medication wore off he had significant pain in his left eye. Patient reports feeling as though there is glass in his eye. Proparacaine was instilled in the eye and patient had resolution of his discomfort For seen staining reveals diffuse uptake but no obvious abrasions, negative Lynn sign Testing of intraocular pressure revealed pressures to be 21 patient has not used his eye drops this evening due to concern that they may react with his injections from today Patient had complete resolution of pain and was resting comfortably patient has an established follow-up visit at 8:30 AM with his rn admissions. At this time patient is comfortable with plan for discharge home. Return parameters were discussed patient was discharged home in stable condition. Disposition Clinical Impression: Iritis of left eye Disposition: HOME SELF-CARE Condition: Stable Instructions (If sedation given, give patient instructions): Eye Lubricant (Into the eye) Additional Instructions: Follow up in office as scheduled this morning at 8:30am Is patient prescribed a controlled substance at d/c from ED?: No Referrals: Oracio Lopes MD [Primary Care Provider] - 1-2 days
[2020-06-19] MEDS ORDERED: FLUORESCEIN STRIPS 1 MG STRIP LEFT EYE ONE (00:10)
[2020-06-19] MEDS ORDERED: PROPARACAINE 0.5% OPHTH DROPS 15 ML BTL LEFT EYE STA (00:10)
[2020-06-19] MEDS ORDERED: HYDROmorphone 1 MG/ML 1 ML SYRINGE IM STA (00:10)
[2020-06-19] MEDS ORDERED: HYDROmorphone 1 MG/ML 1 ML SYRINGE IVP STA (00:24)
[2020-06-19 01:36] VITALS: BP 122/80; PULSE 75; RESP 18; TEMP 98
== END 2020-06-19 01:36 | disposition home or self-care (01) ==
LOC: EC 23:40
DX: H20.9 Unspecified iridocyclitis (principal); E11.311 Type 2 diabetes mellitus with unspecified diabetic retinopathy with macular edema; R07.9 Chest pain, unspecified; Z79.84 Long term (current) use of oral hypoglycemic drugs; Z79.899 Other long term (current) drug therapy; Z88.8 Allergy status to other drugs, medicaments and biological substances
CPT/HCPCS: 99283; 96374; J1170

== ENCOUNTER 2020-06-19 12:15 | Day surgery (SDC) | payer MEDICARE, OTHER ==
[2020-06-15 10:53] VITALS: BMI 27.9
[2020-06-19 12:40] VITALS: TEMP 98
[2020-06-19] MEDS ORDERED: LACTATED RINGERS 1,000 ML IV ONE (12:45)
[2020-06-19] MEDS ORDERED: ROPIVACAINE 5MG/ML 20ML VIAL ONE (12:53)
--- NOTE | 2020-06-19 13:07 | P.PCN ---
Date of Procedure: 06/19/20 Procedure(s) Performed: Procedure= Trigger point injection cervical paraspinal muscles, rhomboid muscle, trapezius muscle, bilaterally total of 6 trigger point injected , 3 on the right side and 3 on the left side Preoperative diagnosis= 1-myofascial pain syndrome cervical area. 2-cervical spondylosis with cervical facet arthropathy without myelopathy Postoperative diagnosis=Same as preop Diagnosis . Complication = none Condition= stable Anesthesia=none Indication for the procedure= patient complaining of neck back pain , examination was positive for multiple trigger point in the cervical paraspinal muscles trapezius muscle and also the rhomboid muscles condition here today for trigger point injections, Description of the procedure= procedure risk and benefits discussed with the patient, including but not limited, risk of infection and bleeding, and ALLERGIC reaction to the medication and not complete pain relief and patient agreed with the preceding patient taken to the operating room, placed in sitting position position or standard monitors applied to the patient then ,then cervical area prepped with chlorhexidine 3 times , Then under strict technique, using 25-gauge needles, ropivacaine 0.5% 12 ml , each of the trigger point injected with 2 mL of Ropivacaine 0.5 % , ejection done after negative aspiration ,and there was no paresthesia during the injection, 3 trigger point injected on the right side cervical paraspinal muscles and trapezius muscle and the right rhomboid muscle, and the same muscles done on the left side left side cervical paraspinal muscles and left trapezius muscle and left rhomboid muscle, patient tolerated the procedure well without any complications and he will follow up in the pain clinic in a few weeks
[2020-06-19] MEDS ORDERED: IV FLUID CONTINUATION 1,000 ML IV ONE (13:12)
[2020-06-19 13:14] VITALS: RESP 16
[2020-06-19 13:28] VITALS: BP 122/78; PULSE 65
[2020-06-22 07:49] LABS: Glucose,Whole Blood 133 mg/dL (75-99)
== END 2020-06-19 13:43 ==
LOC: ORPAIN 12:15
PROVIDERS: ATTEND Specialist
DX: M79.18 Myalgia, other site (principal); M47.812 Spondylosis without myelopathy or radiculopathy, cervical region; Z88.8 Allergy status to other drugs, medicaments and biological substances; E11.9 Type 2 diabetes mellitus without complications
CPT/HCPCS: 20553; J2795

== ENCOUNTER → 2020-07-09 | Outpatient (CLI) | payer MEDICARE, OTHER ==
[2020-07-09 10:44] VITALS: BP 111/75; PULSE 91; RESP 16; TEMP 98.1
--- NOTE | 2020-07-09 10:58 | P.PN ---
Subjective Progress Note Date: 07/09/20 This is a 54-year-old gentleman with history of neck pain status post cervical medial branch RFA and the trigger point injection bilaterally. 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 Internal this exacerbation the patient's pain is still at a tolerable level and he would like to hold off on any injections in his neck at this point. Patient denies new-onset weakness, bowel/bladder incontinence, or any other signs or symptoms of cauda equina syndrome. There are no signs of acute intoxication, and no indications of medication diversion or overuse. In addition to above, 13-point review of systems is also negative for chest pain, shortness of breath, changes in vision, changes in hearing, new onset weakness, abdominal pain, diarrhea, extreme fatigue, malaise, fever, skin changes, homicidal or suicidal ideation, or bowel or bladder incontinence. Vital Signs: Reviewed in EMR Gen: AAOx3, NAD HEENT: PERRLA,hearing grossly normal Pulm: resp unlabored Heart: Regular Neck: supple, trachea midline Muscle strength exam in the upper extremities showed decreased left elbow flexion and extension to 4 out of 5 but the rest of the muscle strength exam is within normal limits. Tenderness in the paravertebral musculature: Positive tenderness in the cervical paravertebral musculature Neuro: CN II-XII grossly intact, Imaging: Reviewed in EMR/chart Assessment: Cervical spondylosis without myelopathy Myofascial pain Plan: 1. Explanation: Opioid and psychological risk scores were reviewed. Diagnoses, prognoses, and multiple treatment options including but not limited to physical therapy, interventional therapies, adjuvant medical therapies, narcotic medication therapies, and surgery were discussed with the patient and all ques tions were answered to the patient's satisfaction. 2. Opioid agreement: We cannot prescribe opioids 3. Counseling: The patient was counseled extensively on SMOKING CESSATION, BODY MASS INDEX, EXERCISE. Specifically, the patient was instructed regarding the importance of smoking cessation, obesity, and exercise in the context of both chronic pain and overall health. 4. Procedures: None 5. Consultations: None 6. Investigations: None 7. Medications: Continue Mobic 7.5 mg twice a day and the patient will get his prescription from his primary care physician 8. Disposition: Return to clinic on an as-needed basis 9. Maps were reviewed and were appropriate.
== END | disposition home or self-care (01) ==
LOC: PNWHC3 10:19
PROVIDERS: ATTEND Anesthesiology
DX: M47.812 Spondylosis without myelopathy or radiculopathy, cervical region (principal); M79.18 Myalgia, other site; Z79.1 Long term (current) use of non-steroidal anti-inflammatories (NSAID)
CPT/HCPCS: 99211

== ENCOUNTER → 2023-03-06 | Outpatient (CLI) | payer MEDICARE, OTHER ==
--- NOTE | 2023-03-06 18:46 | MR ---
EXAMINATION TYPE: MR brain wo/w con DATE OF EXAM: 03/06/2023 COMPARISON: NONE HISTORY: 57-year-old male G45.9, TIA TECHNIQUE: Multiplanar, multisequence images of the brain and brainstem were acquired before and aft er administration of 9 mL IV Gadavist. Diffusion weighted imaging is performed. FINDINGS: No evidence for acute infarction, hemorrhage, mass, mass effect, midline shift, herniation, effacemen t of basal cisterns, or extra-axial fluid collection. The ventricles and sulci are age-appropriate. Major intracranial flow voids are intact. T2/FLAIR weighted sequences show no white matter signal abnormality. Midline structures demonstrate normal morphology. The craniocervical junction is normal. Post contrast images demonstrate no evidence of pathologic enhancement. Dural venous sinuses are pat ent. Rightward nasal septal deviation. Some fluid within the inferior right mastoid air cells. Mild mucosa l thickening ethmoid air cells. Globes are intact. IMPRESSION: 1. No acute intracranial abnormality, abnormal white matter signal changes, or abnormal intracranial enhancement seen. 2. Mild chronic ethmoid sinus disease. Some fluid within the inferior right mastoid air cells. Correl ate for any mastoid pain to exclude mastoiditis.
== END | disposition home or self-care (01) ==
LOC: RADMRIMAIN 13:56
PROVIDERS: ATTEND Family Medicine
DX: J32.2 Chronic ethmoidal sinusitis (principal); G45.9 Transient cerebral ischemic attack, unspecified
CPT/HCPCS: 70553; A9585

== ENCOUNTER 2023-03-22 13:48 | Emergency (ER) | payer MEDICARE, OTHER ==
[2023-03-22] MEDS ORDERED: FLUORESCEIN STRIPS 1 MG STRIP RIGHT EYE ONE (14:44)
[2023-03-22] MEDS ORDERED: PROPARACAINE 0.5% OPHTH DROPS 15 ML BTL RIGHT EYE STA (14:44)
--- NOTE | 2023-03-22 14:55 | ED ---
General Adult HPI - General Chief complaint: Eye Problems Stated complaint: Visual disturbance Time Seen by Provider: 03/22/23 14:28 Source: patient, RN notes reviewed Mode of arrival: ambulatory Limitations: no limitations - History of Present Illness Initial comments: 57-year-old male presents to the emergency department with chief complaint of floaters in his right eye 1 hour. Patient states that it is in the upper medial portion of the right visual field a crescent shape with extensions coming off it that he describes as a veiny appearance. He states that the eye is painless. He states that he has not had any change in his vision in the right eye. He reports glasses use for distance. He states he has a history of macular degeneration in the left eye along with diabetic retinopathy. He states that he has gotten floaters in left eye before and frequently after his eye injections but he has not had any in the right eye. Dr. Salgado does the patients monthly eye injections. He also reports that he has had a history of elevated pressures in bilateral eyes in the past and has used eyedrops for this but he is not using any currently. - Related Data Home Medications Medication Instructions Recorded Confirmed Empagliflozin/Linagliptin 1 each PO QAM 09/22/17 07/05/20 [Glyxambi 25 mg-5 mg Tablet] Pioglitazone [Actos] 30 mg PO QAM 09/22/17 07/05/20 Cholecalciferol [Vitamin D3 (25 1,000 unit PO DAILY 03/21/20 07/05/20 Mcg = 1000 Iu)] Magnesium 500 mg PO DAILY 03/21/20 07/05/20 metFORMIN HCL ER [Glucophage Xr] 500 mg PO DAILY 03/21/20 07/05/20 oxyCODONE-APAP 5-325MG [Percocet 1 tab PO Q6H PRN 03/21/20 07/05/20 5-325 mg] methocarbamoL [Robaxin] 500 mg PO TID PRN 04/04/20 07/05/20 Previous Rx's Medication Instructions Recorded Meloxicam [Mobic] 7.5 mg PO BID 30 Days #60 tab 06/13/20 Allergies Allergy/AdvReac Type Severity Reaction Status Date / Time Insulins AdvReac migraines Verified 03/22/23 13:51 Review of Systems ROS Statement: Those systems with pertinent positive or pertinent negative responses have been documented in the HPI. ROS Other: All systems not noted in ROS Statement are negative. Past Medical History Past Medical History: Chest Pain / Angina, Diabetes Mellitus, Eye Disorder, Memory Impairment, Skin Disorder Additional Past Medical History / Comment(s): "Dupuytrens" disease (Thickening of skin on hands), Rt hand sl tender, Hx. of renal stones. "Chest pain from anxiety." Occ Memory impairment from skiing accident last year. Macular dege neration and retinopathy bilaterally. Borderline high cholestrol. History of Any Multi-Drug Resistant Organisms: None Reported Past Surgical History: Orthopedic Surgery Additional Past Surgical History / Comment(s): Bilateral hand surgery, Foreign Body Removal left foot. PAIN CLINIC PROCEDURES Past Anesthesia/Blood Transfusion Reactions: Previous Problems w/ Anesthesia Additional Past Anesthesia/Blood Transfusion Reaction / Comment(s): [place] increased depression after hand surgery x1 Past Psychological History: Anxiety, Depression, Panic Disorder Smoking Status: Never smoker Past Alcohol Use History: None Reported Past Drug Use History: None Reported - Past Family History Mother Family Medical History: No Reported History General Exam Limitations: no limitations General appearance: alert, in no apparent distress Head exam: Present: atraumatic, normocephalic, normal inspection Eye exam: Present: EOMI, other (Eye pressures were obtained which showed a pressure of 24 in the right eye, pham lamp exam showed no corneal abrasions) Pupils: Present: unequal (Right pupil smaller than the left but within normal limits) ENT exam: Present: normal exam, mucous membranes moist Neck exam: Present: normal inspection. Absent: tenderness, meningismus, lymphadenopathy Respiratory exam: Present: normal lung sounds bilaterally. Absent: respiratory distress, wheezes, rales, rhonchi, stridor Neurological exam: Present: alert, oriented X3 Psychiatric exam: Present: normal affect, normal mood Course Vital Signs 03/22/23 03/22/23 03/22/23 13:49 15:26 17:08 Temperature 98.2 F 97.9 F Pulse Rate 84 76 70 Respiratory 20 18 18 Rate Blood Pressure 137/80 127/87 124/82 O2 Sat by Pulse 97 99 98 Oximetry Medical Decision Making - Medical Decision Making Was pt. sent in by a medical professional or institution (, PA, PLANT CHIEF, urgent care, hospital, or senior living...) When possible be specific @ -No Did you speak to anyone other than the patient for history (EMS, parent, family, police, friend...)? What history was obtained from this source @ -No Did you review nursing and triage notes (agree or disagree)? Why? @ -I reviewed and agree with nursing and triage notes Were old charts reviewed (outside hosp., previous admission, EMS record, old EKG, old radiological studies, urgent care reports/EKG's, senior living records)? Report findings @ -No old charts were reviewed Differential Diagnosis (chest pain, altered mental status, abdominal pain women, abdominal pain men, vaginal bleeding, weakness, fever, dyspnea, syncope, headache, dizziness, GI bleed, back pain, seizure, CVA, palpatations, mental health, musculoskeletal)? @ -Glaucoma, macular degeneration, diabetic retinopathy, retinal detachment, iritis, conjunctivitis this list is not all-inclusive EKG interpreted by me (3pts min.). @ -None X-rays interpreted by me (1pt min.). @ -None done CT interpreted by me (1pt min.). @ -None done U/S interpreted by me (1pt. min.). @ -None done What testing was considered but not performed or refused? (CT, X-rays, U/S, labs)? Why? @ -None What meds were considered but not given or refused? Why? @ -None Did you discuss the management of the patient with other professionals (professionals i.e. , PA, PLANT CHIEF, lab, RT, psych nurse, social services analyst, returned goods repairer, teacher, front desk officer, case worker)? Give summary @ -Yes case was discussed with ophthalmology who recommended outpatient follow- up with ophthalmology and latanoprost eyedrops daily at bedtime Was smoking cessation discussed for >3mins.? @ -No Was critical care preformed (if so, how long)? @ -No Were there social determinants of health that impacted care today? How? (Homelessness, low income, unemployed, alcoholism, drug addiction, transportation, low edu. Level, literacy, decrease access to med. care, [facility] [facility], rehab)? @ -No Was there de-escalation of care discussed even if they declined (Discuss DNR or withdrawal of care, Hospice)? DNR status @ -No What co-morbidities impacted this encounter? (DM, HTN, Smoking, COPD, CAD, Cancer, CVA, ARF, Chemo, Hep., AIDS, mental health diagnosis, sleep apnea, morbid obesity)? @ -None Was patient admitted / discharged? Hospital course, mention meds given and route, prescriptions, significant lab abnormalities, going to OR and other pertinent info. @ -Discharged. Patient presented in the emergency department with chief complaint of dark spot in his vision of his right eye that started just prior to arrival to the emergency department. Pham lamp examination was performed which showed no corneal abrasion. There are no conjunctival injections, tearing. Patient's visual acuity was [place] 4020, [place] [address]. He is reports no other changes in his vision. Case was discussed with Dr. Lara johnson who does not believe this is a retinal detachment and believes that this is likely due to his diabetic retinopathy. He also recommended that patient be started on latanoprost eyedrops every night at bedtime. Patient was advised to follow-up with ophthalmology on Thursday and to return to the emergency department if he develops any changes in his vision including multiple floaters, snow globe appearance, curtain coming down. Undiagnosed new problem with uncertain prognosis? @ -No Drug Therapy requiring intensive monitoring for toxicity (Heparin, Nitro, Insulin, Cardizem)? @ -No Were any procedures done? @ -No Diagnosis/symptom? @ -Diabetic retinopathy Acute, or Chronic, or Acute on Chronic? @ -Acute Uncomplicated (without systemic symptoms) or Complicated (systemic symptoms)? @ -Uncomplicated Side effects of treatment? @ -No Exacerbation, Progression, or Severe Exacerbation? @ -No Poses a threat to life or bodily function? How? (Chest pain, [place], [place], pneumonia, PE, COPD, DKA, ARF, appy, cholecystitis, CVA, Diverticulitis, Homicidal, Suicidal, threat to staff... and all critical care pts) @ -No Disposition Clinical Impression: Retinopathy Disposition: HOME SELF-CARE Condition: Stable Instructions (If sedation given, give patient instructions): Diabetic Retinopathy (ED) Additional Instructions: Apply 1 drop to right eye every night at bedtime. Please follow up with ophthalmology on Thursday. Return to the emergency department if you have any changes or development of symptoms. Is patient prescribed a controlled substance at d/c from ED?: No Referrals: Oracio Lopes MD [Primary Care Provider] - 1-2 days Wagner Bermudez MD [STAFF PHYSICIAN] - 1-2 days Time of Disposition: 16:40
[2023-03-22 15:29] VITALS: RESP 18; TEMP 97.9
[2023-03-22] MEDS ORDERED: LATANOPROST 0.005% OPHTH DROPS 2.5 ML BTL RIGHT EYE STA (16:33)
[2023-03-22 17:09] VITALS: BP 124/82; PULSE 70
== END 2023-03-22 17:10 | disposition home or self-care (01) ==
LOC: EC 13:48
DX: H35.00 Unspecified background retinopathy (principal); E11.9 Type 2 diabetes mellitus without complications; F41.9 Anxiety disorder, unspecified; F32.A Depression, unspecified; Z79.899 Other long term (current) drug therapy; Z88.8 Allergy status to other drugs, medicaments and biological substances
CPT/HCPCS: 99283

== ENCOUNTER → 2023-09-08 | Outpatient (CLI) | payer MEDICARE, OTHER ==
--- NOTE | 2023-09-08 11:45 | XR ---
EXAMINATION TYPE: XR cervical spine comp DATE OF EXAM: 09/08/2023 11:40 AM INDICATION: Patient age:Male; 58 years old; Reason for study: M54.2 Cervicalgia; [facility]. COMPARISON: Cervical spine radiograph 11/30/2017, MRI cervical spine 02/01/2019 TECHNIQUE: The cervical spine was imaged in frontal, lateral, bilateral oblique, and odontoid project ions. FINDINGS: No acute fracture. Vertebral body heights are maintained. Straightening of the normal cervical lordos is again demonstrated. No spondylolisthesis. Anterior osteophytosis identified at C5-C6 again. Disc s pace narrowing is demonstrated at C6-C7. Multilevel facet arthropathy most pronounced at C4 and C4-C5 Pedicles are intact. Soft tissues are within normal limits. The odontoid appears intact. IMPRESSION: 1. No fracture or dislocation. 2. Mild degenerative disc disease and facet arthropathy.
== END | disposition home or self-care (01) ==
LOC: RADXRMAIN 10:56
PROVIDERS: ATTEND Family Medicine
DX: M50.323 Other cervical disc degeneration at C6-C7 level (principal); M47.812 Spondylosis without myelopathy or radiculopathy, cervical region
CPT/HCPCS: 72050

== ENCOUNTER → 2023-10-05 | Outpatient (CLI) | payer MEDICARE, OTHER ==
--- NOTE | 2023-10-05 11:36 | MR ---
EXAMINATION TYPE: MR cervical spine wo con DATE OF EXAM: 10/05/2023 COMPARISON: 04/11/2019 HISTORY: Neck pain, BUE numbness, headaches. History of head and neck injury. TECHNIQUE: Multiplanar, multisequence images of the cervical spine were acquired without contrast. There is straightening of the cervical spine. Craniocervical junction maintained. Assessment of the s cameron cord or abnormal signal is limited due to motion artifact scoliotic curvature of the cervicotho racic spine. C2-C3: No evidence for degenerative disc disease. No disc bulge/herniation or protrusion. No Canal stenosis. Foramina are patent bilaterally. C3-C4: Mild degenerative disc disease with uncovertebral joint hypertrophy and facet arthropathy. Mod erate to severe right foraminal encroachment and mild left foraminal protrusion. No canal stenosis. C4-C5: Degenerative disc disease with focal central disc protrusion causing anterior mass effect on t he spinal cord. Cannot excluded abnormal signal within the spinal cord at this level. Facet arthropat hy and uncovertebral joint hypertrophy contribute to severe right and moderate left foraminal encroac hment. There is mild central stenosis C5-C6: Degenerative disc disease with bilateral uncovertebral joint protrusion and facet arthropathy. Broad-based posterior disc osteophyte complex encroaches upon the anterior margin of the spinal cord . Moderate to severe bilateral foraminal encroachment greater on the right. There is mild central vargas nosis. C6-C7: Moderate degenerative disc disease with uncovertebral joint hypertrophy and facet arthropathy. No canal stenosis or discrete herniation. Mild bilateral foraminal protrusion. C7-T1: Bilateral uncovertebral joint hypertrophy with mild bilateral foraminal encroachment. Mild dis c bulging. No disc herniation or canal stenosis. Mild degenerative disc disease. IMPRESSION: 1. Multilevel degenerative disc disease with small focal disc protrusion C4-C5 resulting in mild ante rior impression upon the spinal cord. Finding is stable from prior exam. Cannot exclude an area of ab normal signal back/myelitis in spinal cord at this level. 2. Multilevel significant foraminal encroachment as discussed above secondary to uncovertebral joint hypertrophy and facet arthropathy.
== END | disposition home or self-care (01) ==
LOC: RADMRIMAIN 09:26
PROVIDERS: ATTEND Family Medicine
DX: M50.221 Other cervical disc displacement at C4-C5 level (principal); M50.121 Cervical disc disorder at C4-C5 level with radiculopathy
CPT/HCPCS: 72141

== ENCOUNTER 2025-02-05 17:47 | Emergency (ER) | payer MEDICARE, OTHER ==
[2025-02-05 17:55] VITALS: TEMP 98
--- NOTE | 2025-02-05 18:02 | ED ---
Eye Problem HPI - General Chief complaint: Eye Problems Stated complaint: object in left eye Time Seen by Provider: 02/05/25 17:55 Source: patient, RN notes reviewed Mode of arrival: ambulatory Limitations: no limitations - History of Present Illness Initial comments: 51-year-old male with history of diabetes presents emergency room with left eye pain. Patient states that she was prior to arrival he was eating his son fix the underneath side of his car when he felt that metal got into his eye. Patient was able to remove obvious foreign bodies from his eye however feels like there is still a foreign body within his eye. He denies contact lens use. Denies blurry double vision. Denies headache. Unaware when last tetanus vaccination was. - Related Data Home Medications Medication Instructions Recorded Confirmed Empagliflozin/Linagliptin 1 each PO QAM 09/22/17 07/05/20 [Glyxambi 25 mg-5 mg Tablet] Pioglitazone [Actos] 30 mg PO QAM 09/22/17 07/05/20 Cholecalciferol [Vitamin D3 (25 1,000 unit PO DAILY 03/21/20 07/05/20 Mcg = 1000 Iu)] Magnesium 500 mg PO DAILY 03/21/20 07/05/20 metFORMIN HCL ER [Glucophage Xr] 500 mg PO DAILY 03/21/20 07/05/20 oxyCODONE-APAP 5-325MG [Percocet 1 tab PO Q6H PRN 03/21/20 07/05/20 5-325 mg] methocarbamoL [Robaxin] 500 mg PO TID PRN 04/04/20 07/05/20 Previous Rx's Medication Instructions Recorded Meloxicam [Mobic] 7.5 mg PO BID 30 Days #60 tab 06/13/20 Allergies Allergy/AdvReac Type Severity Reaction Status Date / Time Insulins AdvReac migraines Verified 03/22/23 13:51 Review of Systems ROS Statement: Those systems with pertinent positive or pertinent negative responses have been documented in the HPI. ROS Other: All systems not noted in ROS Statement are negative. Past Medical History Past Medical History: Chest Pain / Angina, Diabetes Mellitus, Eye Disorder, Memory Impairment, Skin Disorder Additional Past Medical History / Comment(s): "Dupuytrens" disease (Thickening of skin on hands), Rt hand sl tender, Hx. of renal stones. "Chest pain from anxiety." Occ Memory impairment from skiing accident last year. Macular degeneration and retinopathy bilaterally. Borderline high cholestrol. History of Any Multi-Drug Resistant Organisms: None Reported Past Surgical History: Orthopedic Surgery Additional Past Surgical History / Comment(s): Bilateral hand surgery, Foreign Body Removal left foot. PAIN CLINIC PROCEDURES Past Anesthesia/Blood Transfusion Reactions: Previous Problems w/ Anesthesia Additional Past Anesthesia/Blood Transfusion Reaction / Comment(s): [place] increased depression after hand surgery x1 Past Psychological History: Anxiety, Depression, Panic Disorder Smoking Status: Never smoker Past Alcohol Use History: None Reported Past Drug Use History: None Reported - Past Family History Mother Family Medical History: No Reported History General Exam Limitations: no limitations General appearance: alert, in no apparent distress Expanded Eyelids: Normal Inspection: Bilateral Pupils: Regular, Round: Bilateral, Reactive: Bilateral Sclera/Conjunctival: Injection: Left Neck exam: Present: normal inspection. Absent: tenderness, meningismus, lymphadenopathy Respiratory exam: Present: normal lung sounds bilaterally. Absent: respiratory distress, wheezes, rales, rhonchi, stridor Cardiovascular Exam: Present: regular rate, normal rhythm, normal heart sounds. Absent: systolic murmur, diastolic murmur, rubs, gallop, clicks GI/Abdominal exam: Present: soft, normal bowel sounds. Absent: distended, tenderness, guarding, rebound, rigid Extremities exam: Present: normal inspection, full ROM, normal capillary refill. Absent: tenderness, pedal edema, joint swelling, calf tenderness Course Vital Signs 02/05/25 02/05/25 17:51 18:56 Temperature 98.0 F 98.0 F Pulse Rate 50 L 52 L Respiratory 16 18 Rate Blood Pressure 135/72 136/76 O2 Sat by Pulse 98 99 Oximetry Medical Decision Making - Medical Decision Making Was pt. sent in by a medical professional or institution (, PA, ROTARY FURNACE OPERATOR, urgent care, hospital, or prison...) When possible be specific @ -No Did you speak to anyone other than the patient for history (EMS, parent, family, police, friend...)? What history was obtained from this source @ -No Did you review nursing and triage notes (agree or disagree)? Why? @ -I reviewed and agree with nursing and triage notes Were old charts reviewed (outside hosp., previous admission, EMS record, old EKG, old radiological studies, urgent care reports/EKG's, prison records)? Report findings @ -No old charts were reviewed Differential Diagnosis (chest pain, altered mental status, abdominal pain women, abdominal pain men, vaginal bleeding, weakness, fever, dyspnea, syncope, headache, dizziness, GI bleed, back pain, seizure, CVA, palpatations, mental health, musculoskeletal)? @ -Foreign body within eye, corneal abrasion, corneal ulceration, this list not all inclusive EKG interpreted by me (3pts min.). @ -None X-rays interpreted by me (1pt min.). @ -None done CT interpreted by me (1pt min.). @ -None done U/S interpreted by me (1pt. min.). @ -None done What testing was considered but not performed or refused? (CT, X-rays, U/S, labs)? Why? @ -None What meds were considered but not given or refused? Why? @ -None Did you discuss the management of the patient with other professionals (professionals i.e. , PA, ROTARY FURNACE OPERATOR, lab, RT, psych nurse, rn social work, loader demolder, teacher, environmental protection officer, showcase trimmer)? Give summary @ -No Was smoking cessation discussed for >3mins.? @ -No Was critical care preformed (if so, how long)? @ -No Were there social determinants of health that impacted care today? How? (Homelessness, low income, unemployed, alcoholism, drug addiction, transportation, low edu. Level, literacy, decrease access to med. care, penitentiary, rehab)? @ -No Was there de-escalation of care discussed even if they declined (Discuss DNR or withdrawal of care, Hospice)? DNR status @ -No What co-morbidities impacted this encounter? (DM, HTN, Smoking, COPD, CAD, Cancer, CVA, ARF, Chemo, Hep., AIDS, mental health diagnosis, sleep apnea, morbid obesity)? @ -None Was patient admitted / discharged? Hospital course, mention meds given and route, prescriptions, significant lab abnormalities, going to OR and other pertinent info. @ -Discharge. 51-year-old male presenting with foreign body sensation to the left eye. Pupils are equal round and reactive bilaterally. There is mild conjunctival injection of the left eye. Fluorescein stain used with direct visualization under Chakraborty lamp to reveal a corneal abrasion. There is no foreign body detected. He is provided with double antibiotic drops and instructed to follow-up with merchandise support associate. Return parameters discussed. Case discussed with Dr. Acevedo Undiagnosed new problem with uncertain prognosis? @ -No Drug Therapy requiring intensive monitoring for toxicity (Heparin, Nitro, Insulin, Cardizem)? @ -No Were any procedures done? @ -No Diagnosis/symptom? @ -corneal abrasion Acute, or Chronic, or Acute on Chronic? @ -acute Uncomplicated (without systemic symptoms) or Complicated (systemic symptoms)? @ -uncomplicated Side effects of treatment? @ -No Exacerbation, Progression, or Severe Exacerbation? @ -No Poses a threat to life or bodily function? How? (Chest pain, [place], [place], pneumonia, PE, COPD, DKA, ARF, appy, cholecystitis, CVA, Diverticulitis, Homicidal, Suicidal, threat to staff... and all critical care pts) @ -No Disposition Clinical Impression: Corneal abrasion, left Disposition: HOME SELF-CARE Condition: Good Instructions (If sedation given, give patient instructions): Corneal Abrasion (ED) Additional Instructions: Please return to the Emergency Department if symptoms worsen or any other co ncerns. You may continue to use 1 to 2 drops of the provided proparacaine, numbing solution, in the left eye every 30 minutes as needed for up to 48 hours only. Continue to use antibiotic drops in the left eye, 2 drops every 6 hours for 7 days. Is patient prescribed a controlled substance at d/c from ED?: No Referrals: Oracio Lopes MD [Primary Care Provider] - 1-2 days Time of Disposition: 18:26
[2025-02-05] MEDS: PROPARACAINE 0.5% OPHTH DROPS 15 ML BTL LEFT EYE STA (18:04)
[2025-02-05] MEDS: FLUORESCEIN STRIPS 1 MG STRIP RIGHT EYE ONE (18:04)
[2025-02-05] MEDS: CIPROFLOXACIN 0.3% OPHTH SOLN 5 ML BTL LEFT EYE STA (18:50)
[2025-02-05 18:58] VITALS: BP 136/76; PULSE 52; RESP 18
== END 2025-02-05 19:00 | disposition home or self-care (01) ==
LOC: EC 17:47
DX: S05.02XA Injury of conjunctiva and corneal abrasion without foreign body, left eye, initial encounter (principal); E11.9 Type 2 diabetes mellitus without complications; Z88.8 Allergy status to other drugs, medicaments and biological substances; W44.9XXA Unspecified foreign body entering into or through a natural orifice, initial encounter
CPT/HCPCS: 99283